=== PATIENT | male | born 1945 | race African-American/Black ===

== ENCOUNTER 2017-02-22 05:54 | Emergency (ER) | payer OTHER ==
[~2017-02-22 05:54] MED LIST: ASPI81TA82 PO; CARD120C4 PO; DUONI NEB; HYDR-3129 PO; INSU1INJ14 SQ; LIPI10TA PO; OMEP20TA PO; PRED20 PO
[2017-02-22 05:55] VITALS: BP 192/88; PULSE 60; RESP 18; TEMP 98; O2SAT 96
[2017-02-22] MEDS ORDERED: ASPI-110 PO (06:19)
[2017-02-22] MEDS ORDERED: CHRO200T4 PO (06:19)
[2017-02-22] MEDS ORDERED: OMEP20TA PO (06:19)
[2017-02-22] MEDS ORDERED: ZETI10TA5 PO (06:19)
[2017-02-22] MEDS ORDERED: ATOR1TAB18 PO (06:19)
[2017-02-22] MEDS ORDERED: DILT120T PO (06:19)
--- NOTE | 2017-02-22 06:40 | PD ---
HPI Chief Complaint: Pain: Acute or Chronic Time Seen by Provider: 06:30 Travel History International Travel<30 days: No Contact w/Intl Traveler<30days: No Traveled to known affect area: No History of Present Illness HPI This is a 71-year-old male who presents to the emergency department with left- sided chest pain that woke him up from sleep at 4 AM, constant, moderate severity, nonradiating. He denies any associated shortness of breath, nausea or diaphoresis. He says the pain goes into his left chest. He says he had a stress test with Dr. Guevara which which he thinks was over a year ago. He says that he had a small heart attack in the past but never received a stent. He does have a history of hypertension, hyperlipidemia and diabetes. PFSH Past Medical History Hx Anticoagulant Therapy: Yes (81MG) Asthma: No Autoimmune Disease: No Blood Disorders: No Heart Rhythm Problems: No Cancer: No Cardiovascular Problems: Yes High Cholesterol: Yes Chemotherapy: No Chest Pain: Yes Congestive Heart Failure: No COPD: Yes Cerebrovascular Accident: No Diabetes: Yes Patient Takes Glucophage: No Diminished Hearing: No Endocrine: Yes Gastrointestinal Disorders: Yes GERD: Yes Genitourinary: No Headaches: Yes (OCCASIONAL) Hiatal Hernia: No Hypertension: Yes Musculoskeletal: No Neurologic: Yes Psychiatric: No Reproductive: No Immunizations Current: Yes Migraines: No Sleep Apnea: No Thyroid Disease: Yes (HYPO) Tetanus Vaccination: < 5 Years Past Surgical History Appendectomy: Yes Cardiac Surgery: No Ear Surgery: No Endocrine Surgery: No Eye Surgery: No Oral Surgery: No Thoracic Surgery: No Other Surgery: Yes (L KNEE) Social History Alcohol Use: Yes (RARE) Tobacco Use: No (quit 2012 after 40 years of pack a day) Substance Use: No Allergies-Medications (Allergen,Severity, Reaction): Coded Allergies: Januvia (Verified Allergy, Severe, Shortness of Breath, 02/22/17) Meloxicam (Verified Allergy, Severe, Wheezing, 02/22/17) Pravastatin (Verified Allergy, Severe, Anaphylaxis, 02/22/17) Reported Meds & Prescriptions Reported Meds & Active Scripts Active Reported Chromium Picolinate 200 Mcg Tab 1 Tab PO DAILY Aspirin 81 (Aspirin) 81 Mg Tabdr 81 Mg PO DAILY Omeprazole 20 Mg Tab 20 Mg PO DAILY Zetia (Ezetimibe) 10 Mg Tab 10 Mg PO DAILY Atorvastatin (Atorvastatin Calcium) 80 Mg Tab 80 Mg PO HS Diltiazem (Diltiazem HCl) 120 Mg Tab 120 Mg PO DAILY Review of Systems Except as stated in HPI: all other systems reviewed are Neg Physical Exam Narrative GENERAL:Well appearing, no acute distress SKIN: Focused skin assessment warm and dry. HEAD: Atraumatic. Normocephalic. EYES: Pupils equal and round. No injection or drainage. ENT: Moist mucous membranes NECK: Trachea midline. CARDIOVASCULAR: Regular rate and rhythm. No murmur appreciated. RESPIRATORY: Clear to auscultation. Breath sounds equal bilaterally. GASTROINTESTINAL: Abdomen soft, non-tender, nondistended. MUSCULOSKELETAL: No obvious deformities. NEUROLOGICAL: Awake and alert. No obvious cranial nerve deficits. Moving all extremities. PSYCHIATRIC: Appropriate mood and affect; insight and judgment normal. Data Data Last Documented VS Vital Signs Date Time Temp Pulse Resp B/P Pulse Ox O2 Delivery O2 Flow Rate FiO2 02/22/17 05:55 98.0 60 18 192/88 96 Room Air MDM Medical Decision Making Medical Screen Exam Complete: Yes Emergency Medical Condition: Yes Interpretation(s) EKG: Normal sinus rhythm with no ST changes Differential Diagnosis Acute coronary syndrome, musculoskeletal pain, pericarditis, pneumonia Narrative Course This is a 71-year-old male who presents to the emergency department with left- sided chest pain that started this morning and woke him up from sleep. He has a history of hypertension, diabetes and hyperlipidemia. EKG is reassuring. Labs will be obtained. I think the patient is appropriate for observation of the chest pain center for serial cardiac enzymes and risk stratification if his initial troponin is reassuring. Mallory Kilpatrick MD Feb 22, 2017 06:40
[2017-02-22 06:43] VITALS: RESP 16; O2SAT 98
[2017-02-22] MEDS ORDERED: SODIUM CHLORIDE 0.9% FLUSH 10 ML FLUSH IVF PRN (06:45)
[2017-02-22] MEDS: ASPIRIN 81 MG CHEW TAB PO ONE (06:47)
[2017-02-22 06:59] LABS: AUTOMATED NEUTROPHIL # 2.6 TH/MM3 (1.8-7.7); BASOPHIL % 0.6 % (0.0-2.0); EOSINOPHIL # 0.1 TH/MM3 (0-0.4); EOSINOPHIL % 1.7 % (0.0-4.0); HEMATOCRIT 38.2 % (39.0-51.0); HEMO FLAGS DIFF FINAL; LYMPH % 28.4 % (9.0-44.0); LYMPHOCYTE # 1.3 TH/MM3 (1.0-4.8); MEAN CELL VOLUME 84.6 FL (80.0-100.0); MEAN CORPUSCULAR HEMOGLOBIN 28.3 PG (27.0-34.0); MEAN CORPUSCULAR HGB CONC 33.4 % (32.0-36.0); MONO % 14.1 % (0.0-8.0); NEUT % 55.2 % (16.0-70.0); PLATELET COUNT 182 TH/MM3 (150-450); RED BLOOD COUNT 4.52 MIL/MM3 (4.50-5.90); RED CELL DISTRIBUTION WIDTH 12.8 % (11.6-17.2); WHITE BLOOD COUNT 4.7 TH/MM3 (4.0-11.0)
[2017-02-22 07:11] LABS: APTT (PATIENT) 30.7 SEC (24.3-30.1); INTERNATIONAL NORMALIZED RATIO 1.1 RATIO; PROTHROMBIN TIME - PATIENT 12.7 SEC (9.8-11.6)
[2017-02-22 07:16] LABS: ANION GAP 7 MEQ/L (5-15); AST (GOT) 19 U/L (15-37); BICARBONATE 26.6 MEQ/L (21.0-32.0); BLOOD UREA NITROGEN 18 MG/DL (7-18); CHLORIDE 103 MEQ/L (98-107); GLOMERULAR FILTRATION RATE 64 ML/MIN (>89); MAGNESIUM 1.8 MG/DL (1.5-2.5); SODIUM (NA) 137 MEQ/L (136-145)
--- NOTE | 2017-02-22 07:16 | RADRPT ---
EXAM DATE/TIME: 02/22/2017 06:43 [facility] COMPARISON: CHEST SINGLE AP, June 10, 2016, 23:29. INDICATIONS : Chest Pain MEDICAL HISTORY : Hypertension. Diabetes mellitus type II. SURGICAL HISTORY : None. ENCOUNTER: Initial ACUITY: 1 day PAIN SCORE: 5/10 LOCATION: Bilateral chest FINDINGS: Stable mild cardiomegaly and cephalization of pulmonary vasculature. Lungs appear clear. Osseous stru ctures are unremarkable. CONCLUSION: Stable exam. Findings suggestive of congestive heart failure. Trinity Nielson MD on February 22, 2017 at 7:14 Board Certified Radiologist. This report was verified electronically.
[2017-02-22 07:20] LABS: ALKALINE PHOSPHATASE 104 U/L (45-117); ALT (GPT) 24 U/L (12-78); TOTAL BILIRUBIN ADULT 0.6 MG/DL (0.2-1.0)
[2017-02-22 07:45] VITALS: BP 188/86; PULSE 53; RESP 16; O2SAT 98
--- NOTE | 2017-02-22 08:33 | PD ---
Data Data Last Documented VS Vital Signs Date Time Temp Pulse Resp B/P Pulse Ox O2 Delivery O2 Flow Rate FiO2 02/22/17 07:45 53 16 188/86 98 Room Air 02/22/17 05:55 98.0 Orders Electrocardiogram (02/22/17 06:36) Complete Blood Count With Diff (02/22/17 06:36) Comprehensive Metabolic Panel (02/22/17 06:36) Magnesium (Mg) (02/22/17 06:36) Prothrombin Time / Inr (Pt) (02/22/17 06:36) Act Partial Throm Time (Ptt) (02/22/17 06:36) Troponin I (02/22/17 06:36) Chest, Single Ap (02/22/17 06:36) Ecg Monitoring (02/22/17 06:36) Bilateral Bp Monitoring (02/22/17 06:36) Iv Access Insert/Monitor (02/22/17 06:36) Oximetry (02/22/17 06:36) Oxygen Administration (02/22/17 06:36) Aspirin Chew (Aspirin Chew) (02/22/17 06:45) Sodium Chloride 0.9% Flush (Ns Flush) (02/22/17 06:45) Labs Laboratory Tests Test 02/22/17 06:40 White Blood Count 4.7 TH/MM3 Red Blood Count 4.52 MIL/MM3 Hemoglobin 12.8 GM/DL Hematocrit 38.2 % Mean Corpuscular Volume 84.6 FL Mean Corpuscular Hemoglobin 28.3 PG Mean Corpuscular Hemoglobin 33.4 % Concent Red Cell Distribution Width 12.8 % Platelet Count 182 TH/MM3 Mean Platelet Volume 9.2 FL Neutrophils (%) (Auto) 55.2 % Lymphocytes (%) (Auto) 28.4 % Monocytes (%) (Auto) 14.1 % Eosinophils (%) (Auto) 1.7 % Basophils (%) (Auto) 0.6 % Neutrophils # (Auto) 2.6 TH/MM3 Lymphocytes # (Auto) 1.3 TH/MM3 Monocytes # (Auto) 0.7 TH/MM3 Eosinophils # (Auto) 0.1 TH/MM3 Basophils # (Auto) 0.0 TH/MM3 CBC Comment DIFF FINAL Differential Comment Prothrombin Time 12.7 SEC Prothromb Time International 1.1 RATIO Ratio Activated Partial 30.7 SEC Thromboplast Time Sodium Level 137 MEQ/L Potassium Level 4.0 MEQ/L Chloride Level 103 MEQ/L Carbon Dioxide Level 26.6 MEQ/L Anion Gap 7 MEQ/L Blood Urea Nitrogen 18 MG/DL Creatinine 1.32 MG/DL Estimat Glomerular Filtration 64 ML/MIN Rate Random Glucose 268 MG/DL Calcium Level 8.5 MG/DL Magnesium Level 1.8 MG/DL Total Bilirubin 0.6 MG/DL Aspartate Amino Transf 19 U/L (AST/SGOT) Alanine Aminotransferase 24 U/L (ALT/SGPT) Alkaline Phosphatase 104 U/L Troponin I LESS THAN 0.02 NG/ML Total Protein 7.2 GM/DL Albumin 3.7 GM/DL [facility] Supervised Visit with JENNIFER: No Narrative Course This patient is checked out to me by Dr. Bernstein at 7 AM. She had recommended a chest pain center observation protocol given his atypical pain and history of CAD. I reviewed the entirety of the workup with the patient at bedside. He is not happy about that plan. He does not want to stay in the hospital. I placed a call to see if his slab off mill tender Dr. Guevara was available to discuss. Unfortunately there is a covering physician and he is not available. Patient had some atypical left upper chest/shoulder/left upper arm pain which could be an anginal variant. His troponin is normal. His chest x-ray is read as some pulmonary edema but he has excellent saturations and no shortness of breath. I reviewed the x-ray and findings look minimal. In any event we discussed at length and I explained the rationale. We reviewed risks and benefits. He is going to sign himself out AGAINST MEDICAL ADVICE. I' ve advised him to return if he worsens or changes his mind. In the event he does not come back he should contact his slab off mill tender's office tomorrow morning for follow-up. Diagnosis Primary Impression: Chest pain, atypical Disposition: AGAINST MEDICAL ADVICE Lee Stevenson MD Feb 22, 2017 08:33
--- NOTE | 2017-02-23 14:15 | EKG ---
Date Performed: 02/22/2017 Time Performed: 06:24:27 PTAGE: 71 years EKG: SINUS BRADYCARDIA NONSPECIFIC T-WAVE ABNORMALITY Since previous tracing, no significant berry nge noted BORDERLINE ECG PREVIOUS TRACING : 11/10/2015 15.21 DOCTOR: Bailee Arevalo Interpretating Date/Time 02/23/2017 14:13:56
== END 2017-02-22 08:47 | disposition left against medical advice (07) ==
LOC: NEPE 05:54
DX: R07.89 Other chest pain (principal); I10 Essential (primary) hypertension; E11.9 Type 2 diabetes mellitus without complications; E78.5 Hyperlipidemia, unspecified; J44.9 Chronic obstructive pulmonary disease, unspecified; K21.9 Gastro-esophageal reflux disease without esophagitis; Z87.891 Personal history of nicotine dependence; Z79.899 Other long term (current) drug therapy; Z79.82 Long term (current) use of aspirin
CPT/HCPCS: 71010; 80053; 83735; 84484; 85025; 85610; 85730; 93005

== ENCOUNTER 2017-04-03 08:44 | Emergency (ER) | payer OTHER ==
[~2017-04-03] VITALS: Ht 172.7 cm; Wt 82.5 kg
[~2017-04-03 08:44] MED LIST changes: +ASPI-110 PO; -ASPI81TA82 PO; +ATOR1TAB18 PO; -CARD120C4 PO; +CHRO200T4 PO; +DILT120T PO; -DUONI NEB; -HYDR-3129 PO; -INSU1INJ14 SQ; -LIPI10TA PO; -PRED20 PO; +ZETI10TA5 PO
[2017-04-03 08:46] VITALS: BP 151/79; PULSE 62; RESP 16; TEMP 98; O2SAT 94
[2017-04-03] MEDS ORDERED: SODIUM CHLORIDE 0.9% FLUSH 10 ML FLUSH IVF PRN (09:15)
[2017-04-03] MEDS ORDERED: RESP: ALBUTEROL 2.5 MG/IPRATROPIUM 0.5 MG NEB (SCH) INH ONE (09:15)
--- NOTE | 2017-04-03 09:29 | PD ---
HPI Chief Complaint: Cold / Flu Symptoms Time Seen by Provider: 09:13 Travel History International Travel<30 days: No Contact w/Intl Traveler<30days: No Traveled to known affect area: No History of Present Illness HPI This is a 72-year-old male with a history of diabetes mellitus, hypertension, hyperlipidemia, who presents today with complaints of cough and cold symptoms 4 days. The patient states he's had a cough with productive yellow phlegm for 4 days. He denies any fevers but states that he had chills last night. He denies any chest pain, chest pressure. He denies any other symptoms at the time of my examination. PFSH Past Medical History Hx Anticoagulant Therapy: Yes (81MG) Asthma: No Autoimmune Disease: No Blood Disorders: No Heart Rhythm Problems: No Cancer: No Cardiovascular Problems: Yes (A-FIB) High Cholesterol: Yes Chemotherapy: No Chest Pain: Yes Congestive Heart Failure: No COPD: Yes Cerebrovascular Accident: No Diabetes: Yes Patient Takes Glucophage: No Diminished Hearing: No Endocrine: Yes Gastrointestinal Disorders: Yes GERD: Yes Genitourinary: No Headaches: Yes (OCCASIONAL) Hiatal Hernia: No Hypertension: Yes Musculoskeletal: No Neurologic: Yes Psychiatric: No Reproductive: No Immunizations Current: Yes Migraines: No Sleep Apnea: No Thyroid Disease: Yes (HYPO) Influenza Vaccination: No Past Surgical History Appendectomy: Yes Cardiac Surgery: No Ear Surgery: No Endocrine Surgery: No Eye Surgery: No Oral Surgery: No Thoracic Surgery: No Other Surgery: Yes (L KNEE) Social History Alcohol Use: No Tobacco Use: No Substance Use: No Allergies-Medications (Allergen,Severity, Reaction): Coded Allergies: Januvia (Verified Allergy, Severe, Shortness of Breath, 04/03/17) Meloxicam (Verified Allergy, Severe, Wheezing, 04/03/17) Pravastatin (Verified Allergy, Severe, Anaphylaxis, 04/03/17) Uncoded Allergies: INVAKANO (Allergy, Mild, Itching, 04/03/17) Reported Meds & Prescriptions Reported Meds & Active Scripts Active Guaifenesin-Codeine Liq 100-10 Mg/5 Ml Soln 10 Ml PO Q6H PRN Zithromax Z-Jeremías (Azithromycin) 250 Mg Dspk 250 Mg PO DIRECTED 500 MG (2 tabs) day 1, then 1 tab days 2-5. Reported Chromium Picolinate 200 Mcg Tab 1 Tab PO DAILY Aspirin 81 (Aspirin) 81 Mg Tabdr 81 Mg PO DAILY Omeprazole 20 Mg Tab 20 Mg PO DAILY Zetia (Ezetimibe) 10 Mg Tab 10 Mg PO DAILY Atorvastatin (Atorvastatin Calcium) 80 Mg Tab 80 Mg PO HS Diltiazem (Diltiazem HCl) 120 Mg Tab 120 Mg PO DAILY Review of Systems Except as stated in HPI: all other systems reviewed are Neg General / Constitutional: Positive: Chills, No: Fever HENT: No: Headaches, Lightheadedness Cardiovascular: No: Chest Pain or Discomfort, Palpitations Respiratory: Positive: Cough, Wheezing, No: Shortness of Breath Gastrointestinal: No: Nausea, Vomiting, Abdominal Pain Musculoskeletal: No: Weakness, Pain Neurologic: No: Weakness, Dizziness, Headache Physical Exam Narrative GENERAL: Well-nourished, well-developed patient, in no acute distress. SKIN: Focused skin assessment warm/dry. HEAD: Normocephalic/atraumatic. EYES: No scleral icterus. No injection or drainage. NECK: Supple, trachea midline. CARDIOVASCULAR: Regular rate and rhythm without murmurs, gallops, or rubs. RESPIRATORY: Mild wheezes heard in the mid lung sounds. No Rales appreciated. GASTROINTESTINAL: Abdomen soft, non-tender, nondistended. MUSCULOSKELETAL: No cyanosis, or edema. NEUROLOGICAL: Awake and alert. Cranial nerves II through XII intact. Motor grossly within normal limits. Five out of 5 muscle strength in all muscle groups. Normal speech. Data Data Last Documented VS Vital Signs Date Time Temp Pulse Resp B/P Pulse Ox O2 Delivery O2 Flow Rate FiO2 04/03/17 10:02 56 165/81 96 Aerosol Mask 7 04/03/17 09:40 16 04/03/17 08:46 98.0 Orders Complete Blood Count With Diff (04/03/17 09:13) Basic Metabolic Panel (Bmp) (04/03/17 09:13) Iv Access Insert/Monitor (04/03/17 09:13) Ecg Monitoring (04/03/17 09:13) Oximetry (04/03/17 09:13) Oxygen Administration (04/03/17 09:13) Chest, Pa & Lat (04/03/17 09:13) Sodium Chloride 0.9% Flush (Ns Flush) (04/03/17 09:15) Albuterol-Ipratropium Neb (Duoneb Neb) (04/03/17 09:15) Albuterol Neb (Albuterol Neb) (04/03/17 09:15) Labs Laboratory Tests Test 04/03/17 09:30 White Blood Count 5.6 TH/MM3 Red Blood Count 4.49 MIL/MM3 Hemoglobin 12.6 GM/DL Hematocrit 37.7 % Mean Corpuscular Volume 83.9 FL Mean Corpuscular Hemoglobin 28.1 PG Mean Corpuscular Hemoglobin 33.5 % Concent Red Cell Distribution Width 13.1 % Platelet Count 209 TH/MM3 Mean Platelet Volume 8.8 FL Neutrophils (%) (Auto) 59.3 % Lymphocytes (%) (Auto) 25.2 % Monocytes (%) (Auto) 13.1 % Eosinophils (%) (Auto) 2.0 % Basophils (%) (Auto) 0.4 % Neutrophils # (Auto) 3.3 TH/MM3 Lymphocytes # (Auto) 1.4 TH/MM3 Monocytes # (Auto) 0.7 TH/MM3 Eosinophils # (Auto) 0.1 TH/MM3 Basophils # (Auto) 0.0 TH/MM3 CBC Comment DIFF FINAL Differential Comment Sodium Level 138 MEQ/L Potassium Level 3.9 MEQ/L Chloride Level 101 MEQ/L Carbon Dioxide Level 28.9 MEQ/L Anion Gap 8 MEQ/L Blood Urea Nitrogen 14 MG/DL Creatinine 1.07 MG/DL Estimat Glomerular Filtration 82 ML/MIN Rate Random Glucose 212 MG/DL Calcium Level 8.9 MG/DL MDM Medical Decision Making Medical Screen Exam Complete: Yes Emergency Medical Condition: Yes Interpretation(s) Last 24 hours Impressions Chest X-Ray 04/03/17912 Signed Impressions: Service Date/Time: Monday, April 03, 2017 09:33 - CONCLUSION: No acute disease. Dakotah Ramos MD FACR Vital Signs Date Time Temp Pulse Resp B/P Pulse Ox O2 Delivery O2 Flow Rate FiO2 04/03/17 10:02 56 165/81 96 Aerosol Mask 7 04/03/17 09:57 99 Room Air 04/03/17 09:40 58 16 191/88 96 Room Air 04/03/17 08:46 98.0 62 16 151/79 94 Differential Diagnosis Bronchitis versus pneumonia versus COPD Narrative Course 72 year-old gentleman with history of COPD/bronchitis, diabetes mother's, who presents today with complaints of cough and congestion. The patient denies any fevers, chills. Patient's chest x-ray shows no evidence of acute infiltrate. He'll be treated with azithromycin Z-Jeremías and cough syrup with codeine. I am not starting him on any steroids given his diabetes mellitus. His blood sugar was elevated at 212. Diagnosis Primary Impression: Bronchitis Additional Impression: Diabetes mellitus Additional Instructions: Return if feeling worse. Follow up with her primary care physician within one to 2 weeks. Med/Other Pt SpecificInfo: Prescription(s) given Scripts Guaifenesin-Codeine Liq 100-10 Mg/5 Ml Soln10 Ml PO Q6H PRN (COUGH) #1 BOTTLE Ref 0 Prov:Valentin Irvin MD 04/03/17 Azithromycin (Zithromax Z-Jeremías)250 Mg [id number] Mg PO DIRECTED #1 DSPK Ref 0 500 MG (2 tabs) day 1, then 1 tab days 2-5. Prov:Valentin Irvin MD 04/03/17 Disposition: 01 DISCHARGE HOME Condition: Stable Valentin Irvin MD April 03, 2017 09:29
[2017-04-03 09:40] VITALS: BP 191/88; PULSE 58; RESP 16; O2SAT 96
[2017-04-03] MEDS: RESP: ALBUTEROL 2.5 MG/3 ML NEB (SCH) INH (09:48)
[2017-04-03 10:02] VITALS: BP 165/81; PULSE 56; O2SAT 96
[2017-04-03 10:09] LABS: AUTOMATED NEUTROPHIL # 3.3 TH/MM3 (1.8-7.7); BASOPHIL % 0.4 % (0.0-2.0); EOSINOPHIL # 0.1 TH/MM3 (0-0.4); HEMATOCRIT 37.7 % (39.0-51.0); HEMO FLAGS DIFF FINAL; LYMPH % 25.2 % (9.0-44.0); LYMPHOCYTE # 1.4 TH/MM3 (1.0-4.8); MEAN CELL VOLUME 83.9 FL (80.0-100.0); MEAN CORPUSCULAR HEMOGLOBIN 28.1 PG (27.0-34.0); MEAN CORPUSCULAR HGB CONC 33.5 % (32.0-36.0); MONO % 13.1 % (0.0-8.0); NEUT % 59.3 % (16.0-70.0); PLATELET COUNT 209 TH/MM3 (150-450); RED BLOOD COUNT 4.49 MIL/MM3 (4.50-5.90); RED CELL DISTRIBUTION WIDTH 13.1 % (11.6-17.2); WHITE BLOOD COUNT 5.6 TH/MM3 (4.0-11.0)
--- NOTE | 2017-04-03 10:10 | RADRPT ---
EXAM DATE/TIME: 04/03/2017 09:33 [facility] COMPARISON: CHEST PA & LAT, January 12, 2015, 2:08. INDICATIONS : Patient has had productive cough and cold like symptoms for four days. Previous smoker. MEDICAL HISTORY : Hypertension. Diabetes mellitus type II. SURGICAL HISTORY : None. ENCOUNTER: Initial ACUITY: 4 - 6 days PAIN SCORE: 8/10 LOCATION: Bilateral Lower back. FINDINGS: PA and lateral views of the chest demonstrate the lungs to be symmetrically aerated without evidence of mass, infiltrate or effusion. The cardiomediastinal contours are unremarkable. Osseous structure s are intact. CONCLUSION: No acute disease. Dakotah Ramos MD FACR on April 03, 2017 at 10:07 Board Certified Radiologist. This report was verified electronically.
[2017-04-03 10:39] LABS: BICARBONATE 28.9 MEQ/L (21.0-32.0); POTASSIUM 3.9 MEQ/L (3.5-5.1)
[2017-04-03] MEDS ORDERED: GUAI100S5 PO (11:15)
[2017-04-03] MEDS ORDERED: ZITHTAB PO (11:15)
[2017-04-03 11:36] VITALS: BP 158/72
== END 2017-04-03 11:42 | disposition home or self-care (01) ==
LOC: NEPC 08:44
DX: J44.9 Chronic obstructive pulmonary disease, unspecified (principal); E11.9 Type 2 diabetes mellitus without complications; Z79.84 Long term (current) use of oral hypoglycemic drugs
CPT/HCPCS: 71020; 80048; 85025; 94640; 94664; 99283; J7613

== ENCOUNTER 2017-04-15 20:58 | Emergency (ER) | payer OTHER ==
[~2017-04-15] VITALS: Ht 172.7 cm; Wt 85.0 kg
[~2017-04-15 20:58] MED LIST changes: +GUAI100S5 PO; +ZITHTAB PO
[2017-04-15 21:01] VITALS: BP 167/78; PULSE 61; RESP 16; TEMP 98.6; O2SAT 96
--- NOTE | 2017-04-15 21:17 | PD ---
Physical Exam Time Seen by Provider: 21:12 Narrative 72yo M c/o high blood sugars. Home reading 510. ER reading 401. Gave self 12u of Tresiba. Was told by PCP to come to ER if blood sugars continued to elevate. Patient seen in triage. VS reviewed. Awaiting bed placement. Data Data Last Documented VS Vital Signs Date Time Temp Pulse Resp B/P Pulse Ox O2 Delivery O2 Flow Rate FiO2 04/15/17 21:01 98.6 61 16 167/78 96 Room Air MDM Supervised Visit with JENNIFER: Jaylene Verduzco April 15, 2017 21:17
[2017-04-15 21:25] VITALS: RESP 18; O2SAT 98
[2017-04-15] MEDS ORDERED: SODIUM CHLORIDE 0.9% FLUSH 10 ML FLUSH IVF PRN (23:00)
--- NOTE | 2017-04-15 23:19 | RADRPT ---
EXAM DATE/TIME: 04/15/2017 23:10 [facility] COMPARISON: CHEST SINGLE AP, June 10, 2016, 23:29. CHEST PA & LAT, April 03, 2017, 9:33. INDICATIONS : Cough for one week. MEDICAL HISTORY : Diabetes mellitus type II. Hypertension SURGICAL HISTORY : None. ENCOUNTER: Initial ACUITY: 1 week PAIN SCORE: 0/10 LOCATION: Bilateral chest FINDINGS: A single view of the chest demonstrates the lungs to be symmetrically aerated without evidence of mas s, infiltrate or effusion. The cardiomediastinal contours are unremarkable. Osseous structures are intact. CONCLUSION: No acute disease. Kiet Michel MD on April 15, 2017 at 23:16 Board Certified Radiologist. This report was verified electronically.
--- NOTE | 2017-04-15 23:41 | PD ---
Physical Exam Date Seen by Provider: April 15, 2017 Time Seen by Provider: 23:38 Narrative GENERAL: Well-developed well-nourished male in acute distress no respiratory distress SKIN: Warm and dry. HEAD: Normocephalic. EYES: No scleral icterus. No injection or drainage. NECK: Supple, trachea midline. No JVD or lymphadenopathy. CARDIOVASCULAR: Decreased Regular rate and rhythm without murmurs, gallops, or rubs. RESPIRATORY: Breath sounds equal bilaterally. No accessory muscle use. GASTROINTESTINAL: Abdomen soft, non-tender, nondistended. MUSCULOSKELETAL: No cyanosis, or edema. BACK: Nontender without obvious deformity. No CVA tenderness. Data Data Last Documented VS Vital Signs Date Time Temp Pulse Resp B/P Pulse Ox O2 Delivery O2 Flow Rate FiO2 04/16/17 00:30 46 16 148/68 99 Room Air 04/15/17 21:01 98.6 Orders Electrocardiogram (04/15/17 22:51) Complete Blood Count With Diff (04/15/17 22:51) Comprehensive Metabolic Panel (04/15/17 22:51) Beta Hydroxybutyrate (Acetone) (04/15/17 22:51) Urinalysis - C+S If Indicated (04/15/17 22:51) Chest, Single Ap (04/15/17 22:51) Blood Glucose (04/15/17 22:51) Ecg Monitoring (04/15/17 22:51) Iv Access Insert/Monitor (04/15/17 22:51) Oximetry (04/15/17 22:51) NPO (04/15/17 22:51) Sodium Chloride 0.9% Flush (Ns Flush) (04/15/17 23:00) Troponin I (04/15/17 22:51) Blood Glucose (04/16/17 00:22) Labs Laboratory Tests Test 04/15/17 04/15/17 22:50 23:30 White Blood Count 8.1 TH/MM3 Red Blood Count 4.73 MIL/MM3 Hemoglobin 13.2 GM/DL Hematocrit 40.4 % Mean Corpuscular Volume 85.5 FL Mean Corpuscular Hemoglobin 27.9 PG Mean Corpuscular Hemoglobin 32.6 % Concent Red Cell Distribution Width 13.4 % Platelet Count 237 TH/MM3 Mean Platelet Volume 9.1 FL Neutrophils (%) (Auto) 67.0 % Lymphocytes (%) (Auto) 22.0 % Monocytes (%) (Auto) 10.0 % Eosinophils (%) (Auto) 0.3 % Basophils (%) (Auto) 0.7 % Neutrophils # (Auto) 5.4 TH/MM3 Lymphocytes # (Auto) 1.8 TH/MM3 Monocytes # (Auto) 0.8 TH/MM3 Eosinophils # (Auto) 0.0 TH/MM3 Basophils # (Auto) 0.1 TH/MM3 CBC Comment DIFF FINAL Differential Comment Sodium Level 134 MEQ/L Potassium Level 4.2 MEQ/L Chloride Level 99 MEQ/L Carbon Dioxide Level 27.3 MEQ/L Anion Gap 8 MEQ/L Blood Urea Nitrogen 24 MG/DL Creatinine 1.47 MG/DL Estimat Glomerular Filtration 57 ML/MIN Rate Random Glucose 374 MG/DL Calcium Level 8.4 MG/DL Total Bilirubin 0.6 MG/DL Aspartate Amino Transf 21 U/L (AST/SGOT) Alanine Aminotransferase 34 U/L (ALT/SGPT) Alkaline Phosphatase 109 U/L Troponin I LESS THAN 0.02 NG/ML Total Protein 7.7 GM/DL Albumin 3.9 GM/DL B-Hydroxybutyrate 0.12 MMOL/L Urine Color LIGHT-YELLOW Urine Turbidity CLEAR Urine pH 5.5 Urine Specific Butler 1.022 Urine Protein TRACE mg/dL Urine Glucose (UA) 1000 mg/dL Urine Ketones NEG mg/dL Urine Occult Blood TRACE Urine Nitrite NEG Urine Bilirubin NEG Urine Urobilinogen LESS THAN 2.0 MG/DL Urine Leukocyte Esterase NEG Urine RBC 2 /hpf Urine WBC LESS THAN 1 /hpf Urine Squamous Epithelial <1 /hpf Cells Urine Mucus FEW /lpf Microscopic Urinalysis Comment CULT NOT INDICATED [facility] Medical Record Reviewed: Yes Supervised Visit with JENNIFER: Yes Interpretation(s) EKG sinus bradycardia rate [address] elevation or injury pattern change noted CBC & BMP Diagram 04/15/17 22:50 Troponin I: Less than 0.02, not elevated Urinalysis glucosuria otherwise grossly normal range BHB: 0.12 not elevated Differential Diagnosis Steroid-induced hyperglycemia, uncontrolled diabetes, electronic disturbance, bronchitis, pneumonia Narrative Course 72-year-old male presents to the emergency department for complaint of increasing blood sugar after receiving an injection of steroid in his physician' s office yesterday. Patient recently completed a course of azithromycin on Thursday for an upper respiratory infection. Patient had routine follow-up visit on Thursday and was identified to have ongoing wheezing so received a steroid injection. Patient was encouraged by his primary care provider to watch his blood sugars closely as he is a diabetic and to come to the emergency room if his blood sugars remained elevated. This evening his blood sugar was over 500 so decided to come to the emergency room for evaluation. Patient denies any other concerns or complaints. There is been no visual disturbance or altered mentation no diaphoresis no lethargy also no chest pain no new shortness of breath wheezing has resolved mild cough nonproductive no orthopnea no PND no abdominal pain no flank pain no increased urination no dysuria and no skin rash or joint pain or swelling. Patient's pain is 0/10 in intensity. Bedside glucose was 370. 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 @ 00:30 Glucose 295 after taking Tarceva at home will add no additional insulin patient stable for outpatient management and follow-up with his specialist; hyperglycemia most likely reflective of steroid therapy. Diagnosis Primary Impression: Hyperglycemia Referrals: Primary Care Physician call for appointment Patient Instructions: General Instructions Additional Instruction: Increase fluid hydration Continue current medications as presently prescribed Follow-up with your primary care physician call office name to schedule follow- up appointment and for adjustment of medications Return to the emergency department for any concerns or change in condition Med/Other Pt SpecificInfo: No Change to Meds Disposition: 01 DISCHARGE HOME Condition: Stable Brenda Fisher MD April 15, 2017 23:41
[2017-04-15 23:44] LABS: BLOOD, URINE TRACE (NEG); COMMENT (UR) CULT NOT INDICATED; CULTURE IF INDICATED CULT NOT INDICATED; GLUCOSE,URINE 1000 mg/dL (NEG); KETONE, URINE NEG (NEG); MUCUS URINE FEW /lpf (OCC); NITRITE,URINE NEG (NEG); PH, URINE 5.5 (5.0-8.5); SQUAMOUS EPITHELIAL CELL URINE <1 /hpf (0-5); URINE COLOR LIGHT-YELLOW (YELLW/STRAW)
[2017-04-15 23:52] LABS: AUTOMATED NEUTROPHIL # 5.4 TH/MM3 (1.8-7.7); BASOPHIL # 0.1 TH/MM3 (0-0.2); BASOPHIL % 0.7 % (0.0-2.0); EOSINOPHIL % 0.3 % (0.0-4.0); HEMATOCRIT 40.4 % (39.0-51.0); HEMO FLAGS DIFF FINAL; LYMPHOCYTE # 1.8 TH/MM3 (1.0-4.8); MEAN CELL VOLUME 85.5 FL (80.0-100.0); MEAN CORPUSCULAR HEMOGLOBIN 27.9 PG (27.0-34.0); MEAN CORPUSCULAR HGB CONC 32.6 % (32.0-36.0); PLATELET COUNT 237 TH/MM3 (150-450); RED BLOOD COUNT 4.73 MIL/MM3 (4.50-5.90); RED CELL DISTRIBUTION WIDTH 13.4 % (11.6-17.2); WHITE BLOOD COUNT 8.1 TH/MM3 (4.0-11.0)
[2017-04-15 23:56] LABS: ALT (GPT) 34 U/L (12-78); ANION GAP 8 MEQ/L (5-15); AST (GOT) 21 U/L (15-37); BICARBONATE 27.3 MEQ/L (21.0-32.0); BLOOD UREA NITROGEN 24 MG/DL (7-18); CHLORIDE 99 MEQ/L (98-107); GLOMERULAR FILTRATION RATE 57 ML/MIN (>89); POTASSIUM 4.2 MEQ/L (3.5-5.1); SODIUM (NA) 134 MEQ/L (136-145)
[2017-04-16] LABS: ALKALINE PHOSPHATASE 109 U/L (45-117); BETA-HYDROXYBUTYRATE 0.12 MMOL/L (0.00-0.39); TOTAL BILIRUBIN ADULT 0.6 MG/DL (0.2-1.0)
[2017-04-16 00:30] VITALS: BP 148/68; PULSE 46; RESP 16; O2SAT 99
--- NOTE | 2017-04-16 11:29 | EKG ---
Date Performed: 04/15/2017 Time Performed: 23:44:56 PTAGE: 72 years EKG: SINUS BRADYCARDIA NONSPECIFIC T-WAVE ABNORMALITY BORDERLINE ECG PREVIOUS TRACING : 02/22/2017 06.24 Compared to prior tracing no significant change DOCTOR: Ed David Interpretating Date/Time 04/16/2017 11:28:29
== END 2017-04-16 01:15 | disposition home or self-care (01) ==
LOC: NEPC 20:58
DX: E11.65 Type 2 diabetes mellitus with hyperglycemia (principal); R00.1 Bradycardia, unspecified
CPT/HCPCS: 71010; 80053; 81001; 82010; 84484; 85025; 93005; 99285

== ENCOUNTER 2017-04-30 19:27 | Inpatient (IN) | payer OTHER, MEDICARE ==
[~2017-04-30] VITALS: Ht 172.7 cm; Wt 85.4 kg
[~2017-04-30 19:27] MED LIST changes: -CHRO200T4 PO; -ZITHTAB PO
[2017-04-30 19:33] VITALS: BP 202/91; PULSE 61; RESP 18; TEMP 97.7; O2SAT 97
[2017-04-30] MEDS ORDERED: HYDR-3583 PO (21:47)
[2017-04-30] MEDS ORDERED: CHRO200C (21:47)
[2017-04-30 21:51] VITALS: BP 143/77; PULSE 64; RESP 18; O2SAT 98
[2017-04-30] MEDS ORDERED: SODIUM CHLOR 0.9% 1000 ML INJ 1,000 ML IV SCH (21:55)
[2017-04-30 21:57] VITALS: RESP 18; O2SAT 97
[2017-04-30] MEDS ORDERED: ONDANSETRON HCL 4 MG/2 ML VIAL IVP ONE (22:00)
[2017-04-30] MEDS ORDERED: SODIUM CHLORIDE 0.9% FLUSH 10 ML FLUSH IV FLUSH PRN ×2 (22:00→23:30)
[2017-04-30] MEDS ORDERED: MORPHINE SULFATE 8 MG/ML INJ IV PUSH ONE (22:00)
--- NOTE | 2017-04-30 22:13 | PD ---
HPI Chief Complaint: Abdominal Pain Time Seen by Provider: 21:47 Travel History International Travel<30 days: No Contact w/Intl Traveler<30days: No Traveled to known affect area: No History of Present Illness HPI 72 yo M c/o abdominal pain, LUQ and left abdomen, for about 3 hours, associated with nausea and multiple episodes vomiting (5 episodes) and diarrhea. No CP/ SOB. Diaphoresis reported along with weakness generally, which has resolved. Pain started about 1 hour after last PO, chicken, rice and squash. Stool and emesis are non-bloody. PFSH Past Medical History Hx Anticoagulant Therapy: Yes (81MG) Asthma: No Autoimmune Disease: No Blood Disorders: No Heart Rhythm Problems: No Cancer: No Cardiovascular Problems: Yes (AFIB) High Cholesterol: Yes Chemotherapy: No Chest Pain: Yes Congestive Heart Failure: No COPD: Yes Cerebrovascular Accident: No Diabetes: Yes Patient Takes Glucophage: No Diminished Hearing: No Endocrine: Yes Gastrointestinal Disorders: Yes GERD: Yes Genitourinary: No Headaches: Yes (OCCASIONAL) Hiatal Hernia: No Hypertension: Yes Musculoskeletal: No Neurologic: Yes Psychiatric: No Reproductive: No Immunizations Current: Yes Migraines: No Sleep Apnea: No Thyroid Disease: Yes (HYPO) Past Surgical History Appendectomy: Yes Cardiac Surgery: No Ear Surgery: No Endocrine Surgery: No Eye Surgery: No Oral Surgery: No Thoracic Surgery: No Other Surgery: Yes (L KNEE) Social History Alcohol Use: No Tobacco Use: No Substance Use: No Allergies-Medications (Allergen,Severity, Reaction): Coded Allergies: Januvia (Verified Allergy, Severe, Shortness of Breath, 04/30/17) Meloxicam (Verified Allergy, Severe, Wheezing, 04/30/17) Pravastatin (Verified Allergy, Severe, Anaphylaxis, 04/30/17) Uncoded Allergies: INVAKANO (Allergy, Mild, Itching, 04/03/17) Reported Meds & Prescriptions Reported Meds & Active Scripts Active Reported Hydrocodone-Acetaminophen 10-325 mg Tab 1 Tab PO Q4H PRN Chromium Picolinate 200 Mcg Cap Aspirin 81 (Aspirin) 81 Mg Tabdr 81 Mg PO DAILY Omeprazole 20 Mg Tab 20 Mg PO DAILY Zetia (Ezetimibe) 10 Mg Tab 10 Mg PO DAILY Diltiazem (Diltiazem HCl) 120 Mg Tab 120 Mg PO DAILY Review of Systems Except as stated in HPI: all other systems reviewed are Neg Physical Exam Narrative GENERAL: 72 yo M, NAD, WNWD SKIN: Warm and dry. HEAD: Atraumatic. Normocephalic. EYES: Pupils equal and round. No scleral icterus. No injection or drainage. ENT: No nasal bleeding or discharge. Mucous membranes pink and moist. NECK: Trachea midline. No JVD. CARDIOVASCULAR: Regular rate and rhythm. RESPIRATORY: No accessory muscle use. Clear to auscultation. Breath sounds equal bilaterally. GASTROINTESTINAL: Soft. Diffuse tenderness. MUSCULOSKELETAL: Extremities without clubbing, cyanosis, or edema. No obvious deformities. NEUROLOGICAL: Awake and alert. No obvious cranial nerve deficits. Motor grossly within normal limits. Five out of 5 muscle strength in the arms and legs. Normal speech. PSYCHIATRIC: Appropriate mood and affect; insight and judgment normal. Data Data Last Documented VS Vital Signs Date Time Temp Pulse Resp B/P Pulse Ox O2 Delivery O2 Flow Rate FiO2 04/30/17 21:57 18 97 04/30/17 21:51 64 143/77 04/30/17 19:33 97.7 Room Air VS reviewed Orders Complete Blood Count With Diff (04/30/17 21:55) Comprehensive Metabolic Panel (04/30/17 21:55) Lipase (04/30/17 21:55) Ct Abd/Pel W Iv Contrast(Rout) (04/30/17 21:55) Iv Access Insert/Monitor (04/30/17 21:55) Ecg Monitoring (04/30/17 21:55) Oximetry (04/30/17 21:55) Ondansetron Inj (Zofran Inj) (04/30/17 22:00) Sodium Chlor 0.9% 1000 Ml Inj (Ns 1000 M (04/30/17 21:55) Sodium Chloride 0.9% Flush (Ns Flush) (04/30/17 22:00) Morphine Inj (Morphine Inj) (04/30/17 22:00) Iohexol 350 Inj (Omnipaque 350 Inj) (04/30/17 23:10) Mri Mrcp W & W/O Contrast (04/30/17 ) Admit Order (Ed Use Only) (04/30/17 23:27) Labs Laboratory Tests Test 04/30/17 21:58 White Blood Count 8.6 TH/MM3 Red Blood Count 4.93 MIL/MM3 Hemoglobin 13.8 GM/DL Hematocrit 42.0 % Mean Corpuscular Volume 85.2 FL Mean Corpuscular Hemoglobin 28.0 PG Mean Corpuscular Hemoglobin 32.9 % Concent Red Cell Distribution Width 13.4 % Platelet Count 203 TH/MM3 Mean Platelet Volume 8.8 FL Neutrophils (%) (Auto) 92.4 % Lymphocytes (%) (Auto) 5.6 % Monocytes (%) (Auto) 1.7 % Eosinophils (%) (Auto) 0.0 % Basophils (%) (Auto) 0.3 % Neutrophils # (Auto) 8.0 TH/MM3 Lymphocytes # (Auto) 0.5 TH/MM3 Monocytes # (Auto) 0.2 TH/MM3 Eosinophils # (Auto) 0.0 TH/MM3 Basophils # (Auto) 0.0 TH/MM3 CBC Comment DIFF FINAL Differential Comment Sodium Level 135 MEQ/L Potassium Level 4.3 MEQ/L Chloride Level 100 MEQ/L Carbon Dioxide Level 24.5 MEQ/L Anion Gap 11 MEQ/L Blood Urea Nitrogen 20 MG/DL Creatinine 1.17 MG/DL Estimat Glomerular Filtration 74 ML/MIN Rate Random Glucose 202 MG/DL Calcium Level 9.0 MG/DL Total Bilirubin 1.1 MG/DL Aspartate Amino Transf 17 U/L (AST/SGOT) Alanine Aminotransferase 20 U/L (ALT/SGPT) Alkaline Phosphatase 104 U/L Total Protein 8.0 GM/DL Albumin 4.0 GM/DL Lipase 3157 U/L [facility] Medical Decision Making Medical Screen Exam Complete: Yes Emergency Medical Condition: Yes Medical Record Reviewed: Yes Differential Diagnosis Constipation, Gastritis, Acute Cholecystitis, Biliary Colic, Pancreatitis, GOMEZ , Hepatitis, Bowel Obstruction, Cystitis, Mesenteric Ischemia, AAA, Appendicitis , Renal Stone/Hydronephrosis, GERD, perforated viscous Narrative Course CBC & BMP Diagram 04/30/17 21:58 Neutrophil 92.4% LFTs normal Lipase 3157 Last 24 hours Impressions Abdomen/Pelvis CT 04/30/17 1758 Signed Impressions: Service Date/Time: , April 30, 2017 23:03 - CONCLUSION: 1. No evidence of acute abdominal or pelvic process. No masses are identified. 2. Mild prominence of the pancreatic head with dilatation of the pancreatic duct. MRI is recommended for further evaluation if clinically indicated. Floyd Diaz MD Admission for pancreatitis. D/w Dr Ayon. MRCP ordered. Pt denies alcohol use. Diagnosis Primary Impression: Pancreatitis Qualified Code: K85.90 - Acute pancreatitis, unspecified complication status, unspecified pancreatitis type Additional Impression: Nausea vomiting and diarrhea Admitting Information Admitting Physician Requests: Admit Lucian David MD Apr 30, 2017 22:13
[2017-04-30 22:31] LABS: BASOPHIL % 0.3 % (0.0-2.0); HEMO FLAGS DIFF FINAL; LYMPH % 5.6 % (9.0-44.0); LYMPHOCYTE # 0.5 TH/MM3 (1.0-4.8); MEAN CELL VOLUME 85.2 FL (80.0-100.0); MEAN CORPUSCULAR HGB CONC 32.9 % (32.0-36.0); MONO % 1.7 % (0.0-8.0); NEUT % 92.4 % (16.0-70.0); PLATELET COUNT 203 TH/MM3 (150-450); RED BLOOD COUNT 4.93 MIL/MM3 (4.50-5.90); RED CELL DISTRIBUTION WIDTH 13.4 % (11.6-17.2); WHITE BLOOD COUNT 8.6 TH/MM3 (4.0-11.0)
[2017-04-30 22:43] LABS: ANION GAP 11 MEQ/L (5-15); AST (GOT) 17 U/L (15-37); BICARBONATE 24.5 MEQ/L (21.0-32.0); BLOOD UREA NITROGEN 20 MG/DL (7-18); CHLORIDE 100 MEQ/L (98-107); GLOMERULAR FILTRATION RATE 74 ML/MIN (>89); POTASSIUM 4.3 MEQ/L (3.5-5.1); SODIUM (NA) 135 MEQ/L (136-145)
[2017-04-30 22:47] LABS: ALKALINE PHOSPHATASE 104 U/L (45-117); ALT (GPT) 20 U/L (12-78); TOTAL BILIRUBIN ADULT 1.1 MG/DL (0.2-1.0)
[2017-04-30] MEDS ORDERED: IOHEXOL 350 MG/ML 10 ML VIAL (for RAD DIAG) IV ONE (23:10)
--- NOTE | 2017-04-30 23:20 | RADRPT ---
EXAM DATE/TIME: 04/30/2017 23:03 [facility] COMPARISON: CT ABDOMEN & PELVIS W CONTRAST, September 12, 2015, 21:36. INDICATIONS : Abdominal pain with nausea and vomiting. IV CONTRAST: 100 cc Omnipaque 350 (iohexol) IV ORAL CONTRAST: No oral contrast ingested. RADIATION DOSE: 7.04 CTDIvol (mGy) MEDICAL HISTORY : Hypertension. Diabetes mellitus type 2. SURGICAL HISTORY : Appendectomy. ENCOUNTER: Initial ACUITY: 1 day PAIN SCALE: 9/10 LOCATION: abdomen TECHNIQUE: Volumetric scanning of the abdomen and pelvis was performed. Using automated exposure control and ad justment of the mA and/or kV according to patient size, radiation dose was kept as low as reasonably achievable to obtain optimal diagnostic quality images. FINDINGS: Examination of the lung bases demonstrates no abnormality. No pleural fluid is identified. No pulmona ry nodules are present. The liver and spleen are normal in size and no focal defects are identified. Multiple calcified granulomas are present in the spleen. The gallbladder is normal without wall thick ening or pericholecystic fluid. The pancreatic head is heterogeneous without enlargement with mild di latation of the pancreatic duct. Mass is not excluded. MRI is recommended for further evaluation if c linically indicated. The adrenal glands and kidneys appear normal bilaterally. No hydronephrosis or m ass lesions are identified. No abnormally enlarged lymph nodes are identified. Examination of the pelvis demonstrates no evidence of free fluid or pelvic mass. No abnormally enlarg ed inguinal or retroperitoneal lymph nodes are present. The bladder is unremarkable. Examination of t he right lower quadrant demonstrates no abnormality. The appendix is identified and appears normal. T he prostate gland is moderately enlarged impinging on the bladder base. CONCLUSION: 1. No evidence of acute abdominal or pelvic process. No masses are identified. 2. Mild prominence of the pancreatic head with dilatation of the pancreatic duct. MRI is recommended for further evaluation if clinically indicated. Floyd Diaz MD on April 30, 2017 at 23:15 Board Certified Radiologist. This report was verified electronically.
[2017-04-30] MEDS: SODIUM CHLOR 0.9% 1000 ML INJ 1,000 ML IV SCH (23:27)
[2017-04-30] MEDS ORDERED: ONDANSETRON HCL 4 MG/2 ML VIAL IVP PRN (23:30)
[2017-04-30] MEDS ORDERED: NALOXONE HCL 0.4 MG/ML AMP IV PRN (23:30)
[2017-04-30] MEDS ORDERED: MORPHINE SULFATE 4 MG/ML INJ IV PUSH PRN (23:30)
[2017-04-30 23:55] VITALS: PULSE 76
[2017-05-01] VITALS: BP 105/62; PULSE 73; RESP 20; TEMP 97.8; O2SAT 97
--- NOTE | 2017-05-01 01:41 | HHI.HP ---
[facility] Kiet Machuca, DO Admission Diagnosis Pancreatitis, N/V/D Diagnoses: Travel History International Travel<30 Days: No Contact w/Intl Traveler <30 Da: No Traveled to Known Affected Are: No History of Present Illness History from patient, ER provider communication, and review of medical records. Patient reported that he had some turkey wings yesterday and immediately after that, he had diffuse abdominal pain, nausea, and vomited 6 times. He reports he was sweating a bit during that episode as well. However denies fever. Denies diarrhea. Denies any blood in his stool or in his urine. Reports that his vomitus was mostly whitish in color. Patient states that many years ago, he has had GI ulcers. He states he drinks beer about 2 beers a day. He stopped drinking about 7 years ago. He however states that he still has some stomach problems especially if he eats something spicy. Patient denies any prior history of cholecystectomy. denies history of gallstones. Denies any recent change in his medications although he felt like he is not 100 % sure. Review of Systems Except as stated in HPI: all other systems reviewed are Neg Past Family Social History Past Medical History htn dm- on insulin hyperlipdemia copd hx of - 2013 cath showing single vesseldx hx of afib in 2013 hx of heart murmur hx of TIA enlarged prostate Past Surgical History laser sx on left knee Allergies: Coded Allergies: Januvia (Verified Allergy, Severe, Shortness of Breath, 04/30/17) Meloxicam (Verified Allergy, Severe, Wheezing, 04/30/17) Pravastatin (Verified Allergy, Severe, Anaphylaxis, 04/30/17) Uncoded Allergies: INVAKANO (Allergy, Mild, Itching, 04/03/17) Family History mom is diabetic grandmother, brothers- diabetes Social History quit smoking 2012 drinks socially no drugs Physical Exam Vital Signs Vital Signs Date Time Temp Pulse Resp B/P Pulse Ox O2 Delivery O2 Flow Rate FiO2 04/30/17 21:57 18 97 04/30/17 21:51 64 18 143/77 98 04/30/17 21:40 18 04/30/17 19:33 97.7 61 18 202/91 97 Room Air Physical Exam GENERAL: This is a well-nourished, well-developed patient, in no apparent distress. SKIN: No rashes, ecchymoses or lesions. Cool and dry. HEAD: Atraumatic. Normocephalic. No temporal or scalp tenderness. EYES: No scleral icterus. No injection or drainage. ENT: Nose without bleeding, purulent drainage or septal hematoma. Airway patent. NECK: Trachea midline. No JVD CARDIOVASCULAR: Regular rate and rhythm without murmurs, gallops, or rubs. RESPIRATORY: Clear to auscultation. Breath sounds equal bilaterally. No wheezes , rales, or rhonchi. GASTROINTESTINAL: Abdomen soft, tenderness diffusely, nondistended. No guarding. MUSCULOSKELETAL: Extremities without clubbing, cyanosis, or edema.No calf tenderness. NEUROLOGICAL: Awake and alert Motor and sensory grossly within normal limits. Normal speech. Laboratory Laboratory Tests Test 04/30/17 21:58 White Blood Count 8.6 Red Blood Count 4.93 Hemoglobin 13.8 Hematocrit 42.0 Mean Corpuscular Volume 85.2 Mean Corpuscular Hemoglobin 28.0 Mean Corpuscular Hemoglobin 32.9 Concent Red Cell Distribution Width 13.4 Platelet Count 203 Mean Platelet Volume 8.8 Neutrophils (%) (Auto) 92.4 Lymphocytes (%) (Auto) 5.6 Monocytes (%) (Auto) 1.7 Eosinophils (%) (Auto) 0.0 Basophils (%) (Auto) 0.3 Neutrophils # (Auto) 8.0 Lymphocytes # (Auto) 0.5 Monocytes # (Auto) 0.2 Eosinophils # (Auto) 0.0 Basophils # (Auto) 0.0 CBC Comment DIFF FINAL Differential Comment Sodium Level 135 Potassium Level 4.3 Chloride Level 100 Carbon Dioxide Level 24.5 Anion Gap 11 Blood Urea Nitrogen 20 Creatinine 1.17 Estimat Glomerular Filtration 74 Rate Random Glucose 202 Calcium Level 9.0 Total Bilirubin 1.1 Aspartate Amino Transf 17 (AST/SGOT) Alanine Aminotransferase 20 (ALT/SGPT) Alkaline Phosphatase 104 Total Protein 8.0 Albumin 4.0 Lipase 3157 Result Diagram: 04/30/17215704/30/172157 Imaging Last 48 hours Impressions Abdomen/Pelvis CT 04/30/17 4737 Signed Impressions: Service Date/Time: April 23:03 - CONCLUSION: 1. No evidence of acute abdominal or pelvic process. No masses are identified. 2. Mild prominence of the pancreatic head with dilatation of the pancreatic duct. MRI is recommended for further evaluation if clinically indicated. Floyd Diaz MD Assessment and Plan Assessment and Plan Impression: Acute pancreatitis htn dm- on insulin hyperlipdemia copd hx of [place] - 2013 cath showing single vesseldx hx of afib in 2013 hx of heart murmur hx of TIA enlarged prostate Plan: IV fluids. We'll follow [place]'s criteria. Pain control. CT of the abdomen and pelvisreviewed.. Evidence of pancreatic head with dilation of the pancreatic duct. Would obtain MRCP. GI consult. Resume home meds. Hold zetia Hold insulin. We'll monitor fingersticks. DVT prophylaxiswith Lovenox. GI prophylaxis on pantoprazole. Discussed Condition With patient, ER MD, pt's nurse Physician Certification 2 Midnight Certification Type: Admission for Inpatient Services Order for Inpatient Services The services are ordered in accordance with Medicare regulations or non- Medicare payer requirements, as applicable. In the case of services not specified as inpatient-only, they are appropriately provided as inpatient services in accordance with the 2-midnight benchmark. Estimated LOS (days): 2 days is the estimated time the patient will need to remain in the hospital, assuming treatment plan goals are met and no additional complications. Post-Hospital Plan: Home Cathy Ayon MD May 01, 2017 01:41
[2017-05-01] MEDS ORDERED: GLUCAGON 1 MG/ML VIAL OTHER PRN (01:45)
[2017-05-01] MEDS ORDERED: DEXTROSE 50% IN WATER 50 ML VIAL(D50) IV PRN (01:45)
[2017-05-01 04:00] VITALS: BP 127/61; PULSE 55; RESP 16; TEMP 97.9; O2SAT 100
[2017-05-01] MEDS: PANTOPRAZOLE SOD 20 MG DELAYED RELEASE TAB PO SCH (06:49)
[2017-05-01 08:00] VITALS: BP 162/78; PULSE 56; RESP 16; TEMP 97.3; O2SAT 96
[2017-05-01] MEDS ORDERED: MORPHINE SULFATE 4 MG/ML INJ IV PRN (08:00)
[2017-05-01 08:40] LABS: AUTOMATED NEUTROPHIL # 3.1 TH/MM3 (1.8-7.7); BASOPHIL % 0.4 % (0.0-2.0); EOSINOPHIL % 0.8 % (0.0-4.0); HEMATOCRIT 36.7 % (39.0-51.0); HEMO FLAGS DIFF FINAL; LYMPH % 28.3 % (9.0-44.0); LYMPHOCYTE # 1.5 TH/MM3 (1.0-4.8); MEAN CELL VOLUME 84.7 FL (80.0-100.0); MEAN CORPUSCULAR HEMOGLOBIN 28.1 PG (27.0-34.0); MEAN CORPUSCULAR HGB CONC 33.2 % (32.0-36.0); MONO % 10.2 % (0.0-8.0); NEUT % 60.3 % (16.0-70.0); PLATELET COUNT 195 TH/MM3 (150-450); RED BLOOD COUNT 4.34 MIL/MM3 (4.50-5.90); RED CELL DISTRIBUTION WIDTH 13.6 % (11.6-17.2); WHITE BLOOD COUNT 5.1 TH/MM3 (4.0-11.0)
[2017-05-01] MEDS: DILTIAZEM-CD 120 MG CAP ER PO SCH (09:00)
[2017-05-01] MEDS: SODIUM CHLORIDE 0.9% FLUSH 10 ML FLUSH IV FLUSH SCH ×2 (09:00→21:00)
[2017-05-01] MEDS: ENOXAPARIN SODIUM 40 MG/0.4 ML SYRINGE SQ SCH (09:00)
[2017-05-01] MEDS: SODIUM CHLOR 0.9% 1000 ML INJ 1,000 ML IV SCH ×2 (09:03→19:27)
[2017-05-01] MEDS: ASPIRIN EC 81 MG TABEC PO SCH (09:03)
[2017-05-01 09:13] LABS: ALKALINE PHOSPHATASE 87 U/L (45-117); ALT (GPT) 18 U/L (12-78); ANION GAP 6 MEQ/L (5-15); AST (GOT) 13 U/L (15-37); BICARBONATE 27.8 MEQ/L (21.0-32.0); BLOOD UREA NITROGEN 16 MG/DL (7-18); CHLORIDE 102 MEQ/L (98-107); GLOMERULAR FILTRATION RATE 77 ML/MIN (>89); POTASSIUM 3.9 MEQ/L (3.5-5.1); SODIUM (NA) 136 MEQ/L (136-145); TOTAL BILIRUBIN ADULT 1.2 MG/DL (0.2-1.0)
[2017-05-01] MEDS ORDERED: cloNIDine HCL 0.1 MG TAB PO PRN (10:45)
[2017-05-01] MEDS ORDERED: ENALAPRILAT 1.25 MG/ML VIAL IV PRN (10:45)
[2017-05-01 12:00] VITALS: BP 142/67; PULSE 54; RESP 16; TEMP 97.9; O2SAT 95
[2017-05-01] MEDS: INSULIN ASPART SUPPLEMENTAL SCALE SQ SCH ×3 (12:35→21:00)
--- NOTE | 2017-05-01 14:44 | HHI.PR ---
Subjective Remarks Follow up acute pancreatitis. Improving pain scale of 6 out of 10. Agrees to proceed with MRCP if medicated. Seen with family. Discussed with RN Objective Vitals Vital Signs Date Time Temp Pulse Resp B/P Pulse Ox O2 Delivery O2 Flow Rate FiO2 05/01/17 08:00 97.3 56 16 162/78 96 05/01/17 04:00 97.9 55 16 127/61 100 05/01/17 00:00 97.8 73 20 105/62 97 04/30/17 23:55 76 04/30/17 21:57 18 97 04/30/17 21:51 64 18 143/77 98 04/30/17 21:40 18 04/30/17 19:33 97.7 61 18 202/91 97 Room Air I/O 04/30/17 04/30/17 04/30/17 05/01/17 05/01/17 05/01/17 07:00 15:00 23:00 07:00 15:00 23:00 Intake Total 1113 ml Balance 1113 ml Intake Oral 480 ml IV Total 633 ml # Voids 3 # Bowel Movements 0 Result Diagram: 05/01/17 0748 05/01/17 0748 Imaging Last Impressions Abdomen/Pelvis CT 04/30/172154 Signed Impressions: Service Date/Time: April 23:03 - CONCLUSION: 1. No evidence of acute abdominal or pelvic process. No masses are identified. 2. Mild prominence of the pancreatic head with dilatation of the pancreatic duct. MRI is recommended for further evaluation if clinically indicated. Floyd Diaz MD Objective Remarks GENERAL: Well-developed, well-nourished in no distress SKIN: Warm and dry. HEAD: Atraumatic. Normocephalic. EYES: Pupils equal and round. No scleral icterus. No injection or drainage. ENT: No nasal bleeding or discharge. Mucous membranes pink and moist. NECK: Trachea midline. No JVD. CARDIOVASCULAR: Regular rate and rhythm. RESPIRATORY: No accessory muscle use. Clear to auscultation. Breath sounds equal bilaterally. GASTROINTESTINAL: Abdomen soft, tender upper quadrants, nondistended. MUSCULOSKELETAL: Extremities without clubbing, cyanosis, or edema. No obvious deformities. NEUROLOGICAL: Awake and alert. No obvious cranial nerve deficits. Motor grossly within normal limits. Five out of 5 muscle strength in the arms and legs. Normal speech. PSYCHIATRIC: Appropriate mood and affect; insight and judgment normal. Procedures none A/P Problem List: (1) Pancreatitis ICD Code: K85.90 Status: Acute Assessment and Plan Acute pancreatitis. CT shows Mild prominence of the pancreatic head with dilatation of the pancreatic duct. Improving pain with decreasing lipase. Continue clear liquid diet, pain management with IV morphine and follow-up MRCP Chronic medical conditions of htn, dm- on insulin, hyperlipidemia, copd, CAD, afib, TIA and enlarged prostate. Stable continue outpatient medications as appropriate. Monitor fingerstick with sliding scale coverage DVT prophylaxis with SCD and Lovenox Problem Qualifiers (1) Pancreatitis: Qualified Code: K85.90 - Acute pancreatitis, unspecified complication status, unspecified pancreatitis type Reese Mchugh MD May 01, 2017 14:44
[2017-05-01] MEDS ORDERED: LORazepam 2 MG/ML VIAL IV PUSH ONE (14:45)
--- NOTE | 2017-05-01 18:02 | RADRPT ---
EXAM DATE/TIME: 05/01/2017 17:06 [facility] COMPARISON: CT ABDOMEN & PELVIS W CONTRAST, September 12, 2015, 21:36. CT ABDOMEN & PELVIS W/O CONTRAST, May 04, 2016, 1:36. CT ABDOMEN & PELVIS W CONTRAST, April 30, 2017, 23:03. INDICATIONS : Pancreatitis. MEDICAL HISTORY : Hypertension. Diabetes mellitus type 2. Chronic obstructive pulmonary disease. SURGICAL HISTORY : Left knee surgery. ENCOUNTER: Initial ACUITY: 1 day PAIN SCORE: 4/10 LOCATION: Upper abdomen. TECHNIQUE: Multiplanar, multisequence magnetic resonance imaging of the abdomen was performed. High-resolution 3D dataset was utilized to reconstruct maximum-intensity projection (MIP) images. FINDINGS: There is no evidence of intrahepatic or extrahepatic biliary ductal dilatation. The gallbladder is u nremarkable. There is no pancreatic ductal dilatation noted. No solid mass is noted within the panc reas. There is a fluid density ill-defined collection at the junction of the head and body of the lock creas measuring 2.0 x 0.9 cm which appears chronic and may be related to previous bout of pancreatiti s. There are two small cysts within the body of the pancreas measuring 7 mm each, also. No definite peripancreatic inflammatory changes are identified on the MRI. There are scattered cysts within both kidneys which are stable. CONCLUSION: 1. Ill-defined fluid density area within the expected region of the junction of the head and body of the pancreas measuring 2.0 x 0.9 cm which is chronic and likely related to previous bouts of pancreat itis. 2. Two tiny cysts within the body of the pancreas measuring 7 mm each. 3. No evidence of solid mass within the pancreas or pancreatic ductal dilatation. 4. Multiple stable renal cysts. 5. No evidence of biliary ductal dilatation. Chadwick Quintanilla MD on May 01, 2017 at 17:45 Board Certified Radiologist. This report was verified electronically.
--- NOTE | 2017-05-01 18:55 | PD.CONS ---
HPI History of Present Illness This is a 72 year old male with a past history of heavy alcohol use who presented to the ER for evaluation of nausea, vomiting, abdominal pain. He reports that his pain began suddenly yesterday afternoon around 2pm after eating turkey wings and squash. He reports that this is a severe sharp constant pain in his LUQ that radiates to his RUQ with associated nausea and vomiting consisting of food and bilious material. His symptoms were aggravated by po. He reports that he was diaphoretic, but denies any fever or chills. He denies any abnormal weight loss or diarrhea. He denies any melena or hematochezia. Abdomen/Pelvis CT (04/30/17)-----> 1. No evidence of acute abdominal or pelvic process. No masses are identified. 2. Mild prominence of the pancreatic head with dilatation of the pancreatic duct. MRI is recommended for further evaluation if clinically indicated. Lipase was elevated on admission at 3157. He was noted to have mild isolated elevation of his bilirubin and a MRCP(05/01/17)---> ill-defined fluid density area within the expected region of the junction of the head and body of the pancreas measuring 2.0 x 0.9 cm which is chronic and likely related to previous bouts of pancreatitis, two tiny cysts in within the body of the pancreas measuring 7 mm each, no evidence of solid mass within th epancreas or pancreatic ductal dilatation, multiple stable renal cysts, no evidence of biliary ductal dilatation. This GI has been consulted for acute pancreatitis. He denies any prior history of pancreatitis or known gallbladder issues. He does have a long history of heavy alcohol use, but states that he quit completely 3-4 years ago. He had peptic ulcer disease about 10 years ago and was evaluated by EGD at that time. He reports that this resolved after about 4 weeks. He denies any new medications. He does have a history of high triglycerides. He also believes that his mother had pancreatitis in the past. She is from an unknown cancer. (Vibha Lau) PFSH Past Medical History HTN DM Hyperlipdemia COPD CAD/IL Hx Atrial fibrillation Hx heart murmur Hx of TIA Enlarged prostate PUD Past Surgical History Laser surgery on left knee EGD (Vibha Lau) Coded Allergies: Januvia (Verified Allergy, Severe, Shortness of Breath, 6/15/17) Meloxicam (Verified Allergy, Severe, Wheezing, 04/30/17) Pravastatin (Verified Allergy, Severe, Anaphylaxis, 04/30/17) Uncoded Allergies: INVAKANO (Allergy, Mild, Itching, 04/03/17) Medications Allergies Coded Allergies Type Severity Reaction Last Updated Verified Januvia Allergy Severe Shortness of Breath 04/30/17 Yes Meloxicam Allergy Severe Wheezing 04/30/17 Yes Pravastatin Allergy Severe Anaphylaxis 04/30/17 Yes Uncoded Allergies Type Severity Reaction Last Updated Verified INVAKANO Allergy Mild Itching 04/03/17 Active Scripts Medications Dose Route/Sig Days Date Category Hydrocodone-Acetaminophen 10-325 mg Tab 1 Tab PO Q4H PRN 04/30/17 Reported Chromium Picolinate 200 Mcg Cap 04/30/17 Reported Aspirin 81 (Aspirin) 81 Mg Tabdr 81 Mg PO DAILY 02/22/17 Reported Omeprazole 20 Mg Tab 20 Mg PO DAILY 02/22/17 Reported Zetia (Ezetimibe) 10 Mg Tab 10 Mg PO DAILY 02/22/17 Reported Diltiazem (Diltiazem HCl) 120 Mg Tab 120 Mg PO DAILY 02/22/17 Reported Family History Mom had DM, Pancreatitis, from unknown cancer grandmother, brothers- diabetes Social History Quit smoking 2011 States he used to drink alcohol heavily for many years but quit completely 3-4 years ago No illicit drug use (Vibha Lau) Review of Systems Constitutional: COMPLAINS OF: Diaphoretic episodes, Fatigue, DENIES: Fever, Weight loss, Chills, Change in appetite Respiratory: DENIES: Cough Cardiovascular: DENIES: Chest pain Gastrointestinal: COMPLAINS OF: Abdominal pain, Nausea, Vomiting, DENIES: Black stools, Bloody stools, Constipation, Diarrhea, Swelling of Abdomen, Heartburn, Hematemesis Musculoskeletal: COMPLAINS OF: Joint pain Integumentary: DENIES: Abnormal pigmentation, Rash Hematologic/lymphatic: DENIES: Bruising Neurologic: DENIES: Headache Psychiatric: DENIES: Confusion (LauVibha) GI Exam Vitals I&O Vital Signs Date Time Temp Pulse Resp B/P Pulse Ox O2 Delivery O2 Flow Rate FiO2 05/01/17 08:00 97.3 56 16 162/78 96 05/01/17 04:00 97.9 55 16 127/61 100 05/01/17 00:00 97.8 73 20 105/62 97 04/30/17 23:55 76 04/30/17 21:57 18 97 04/30/17 21:51 64 18 143/77 98 04/30/17 21:40 18 04/30/17 19:33 97.7 61 18 202/91 97 Room Air I/O 04/30/17 04/30/17 04/30/17 05/01/17 05/01/17 05/01/17 07:00 15:00 23:00 07:00 15:00 23:00 Intake Total 1113 ml Balance 1113 ml Intake Oral 480 ml IV Total 633 ml # Voids 3 # Bowel Movements 0 Imaging Last Impressions Abdomen/Pelvis CT 04/30/172154 Signed Impressions: Service Date/Time: April 23:03 - CONCLUSION: 1. No evidence of acute abdominal or pelvic process. No masses are identified. 2. Mild prominence of the pancreatic head with dilatation of the pancreatic duct. MRI is recommended for further evaluation if clinically indicated. Floyd Diaz MD Laboratory Test 04/30/17 05/01/17 21:58 07:48 White Blood Count 8.6 TH/MM3 5.1 TH/MM3 Red Blood Count 4.93 MIL/MM3 4.34 MIL/MM3 Hemoglobin 13.8 GM/DL 12.2 GM/DL Hematocrit 42.0 % 36.7 % Mean Corpuscular Volume 85.2 FL 84.7 FL Mean Corpuscular Hemoglobin 28.0 PG 28.1 PG Mean Corpuscular Hemoglobin 32.9 % 33.2 % Concent Red Cell Distribution Width 13.4 % 13.6 % Platelet Count 203 TH/MM3 195 TH/MM3 Mean Platelet Volume 8.8 FL 8.3 FL Neutrophils (%) (Auto) 92.4 % 60.3 % Lymphocytes (%) (Auto) 5.6 % 28.3 % Monocytes (%) (Auto) 1.7 % 10.2 % Eosinophils (%) (Auto) 0.0 % 0.8 % Basophils (%) (Auto) 0.3 % 0.4 % Neutrophils # (Auto) 8.0 TH/MM3 3.1 TH/MM3 Lymphocytes # (Auto) 0.5 TH/MM3 1.5 TH/MM3 Monocytes # (Auto) 0.2 TH/MM3 0.5 TH/MM3 Eosinophils # (Auto) 0.0 TH/MM3 0.0 TH/MM3 Basophils # (Auto) 0.0 TH/MM3 0.0 TH/MM3 CBC Comment DIFF FINAL DIFF FINAL Differential Comment Sodium Level 135 MEQ/L 136 MEQ/L Potassium Level 4.3 MEQ/L 3.9 MEQ/L Chloride Level 100 MEQ/L 102 MEQ/L Carbon Dioxide Level 24.5 MEQ/L 27.8 MEQ/L Anion Gap 11 MEQ/L 6 MEQ/L Blood Urea Nitrogen 20 MG/DL 16 MG/DL Creatinine 1.17 MG/DL 1.13 MG/DL Estimat Glomerular Filtration 74 ML/MIN 77 ML/MIN Rate Random Glucose 202 MG/DL 190 MG/DL Calcium Level 9.0 MG/DL 8.1 MG/DL Total Bilirubin 1.1 MG/DL 1.2 MG/DL Aspartate Amino Transf 17 U/L 13 U/L (AST/SGOT) Alanine Aminotransferase 20 U/L 18 U/L (ALT/SGPT) Alkaline Phosphatase 104 U/L 87 U/L Total Protein 8.0 GM/DL 6.5 GM/DL Albumin 4.0 GM/DL 3.2 GM/DL Lipase 3157 U/L 725 U/L Physical Examination HEENT: Normocephalic; atraumatic CHEST: CTA CARDIAC: RRR. ABDOMEN: Soft, nondistended, mild-mod LUQ/Epigastric tenderness; no hepatosplenomegaly; bowel sounds are present in all four quadrants. EXTREMITIES: No clubbing, cyanosis, or edema. SKIN: Normal; no rash; no jaundice. SENIOR ASIC ENGINEER: No focal deficits; alert and oriented times three. (Vibha Lau) Assessment and Plan Plan ASSESSMENT: - Acute on chronic pancreatitis. Pt denies known hx of pancreatitis in past. He has past heavy etoh use- quit completely 3-4 years ago. Developed severe LUQ sharp pain radiating to his RUQ with n/v after eating turkey wings yesterday. Lipase was 3157 on admission. Abdomen/Pelvis CT (04/30/17)-----> 1. No evidence of acute abdominal or pelvic process. No masses are identified. 2. Mild prominence of the pancreatic head with dilatation of the pancreatic duct. MRI is recommended for further evaluation if clinically indicated. Lipase was elevated on admission at 3157. He was noted to have mild isolated elevation of his bilirubin and a MRCP(05/01/17)---> ill-defined fluid density area within the expected region of the junction of the head and body of the pancreas measuring 2.0 x 0.9 cm which is chronic and likely related to previous bouts of pancreatitis, two tiny cysts in within the body of the pancreas measuring 7 mm each, no evidence of solid mass within th epancreas or pancreatic ductal dilatation, multiple stable renal cysts, no evidence of biliary ductal dilatation. This appears to be acute on chronic pancreatitis. Hx PUD 10 years ago. No new meds, does have hx of high triglycerides, as well as family hx of pancreatitis. Clear liquids. PPI. Lipase improving. No evidence of biliary ductal dilatation on MRCP. Will get triglycerides. Supportive care - Anemia, mild. 12.2/36.7. No obvious blood loss. - Mild hypocalcemia. per primary - HTN, DM, Hyperlipidemia, COPD, Atrial fibrillation, TIA, BPH per primary PLAN: - Clear liquids - IVF - PPI - Triglycerides level - CBC, CMP, Lipase in am - No evidence of biliary dilatation on MRCP - Supportive care - Further recommendations to follow based on results of above - Pt seen and examined by Dr. Stallings and myself and this note was written on his behalf (Vibha Lau) Physician Comments Patient seen and examined Agree with above Continue with current supportive care Monitor labs Pain control (Anthony Stallings MD) Vibha Lau May 01, 2017 18:55 Anthony Stallings MD May 01, 2017 23:31
[2017-05-01 20:00] VITALS: BP 143/66; PULSE 50; PULSE 80; RESP 20; TEMP 97.7; O2SAT 98
[2017-05-02] VITALS: BP 156/68; PULSE 53; RESP 20; TEMP 98; O2SAT 97
[2017-05-02 04:00] VITALS: BP 154/73; PULSE 54; RESP 20; TEMP 98.3; O2SAT 97
[2017-05-02] MEDS: SODIUM CHLOR 0.9% 1000 ML INJ 1,000 ML IV SCH (05:27)
[2017-05-02] MEDS: INSULIN ASPART SUPPLEMENTAL SCALE SQ SCH ×2 (05:35→12:02)
[2017-05-02] MEDS: PANTOPRAZOLE SOD 20 MG DELAYED RELEASE TAB PO SCH (05:40)
[2017-05-02 06:19] LABS: AUTOMATED NEUTROPHIL # 1.7 TH/MM3 (1.8-7.7); BASOPHIL # 0.1 TH/MM3 (0-0.2); BASOPHIL % 1.6 % (0.0-2.0); EOSINOPHIL # 0.1 TH/MM3 (0-0.4); EOSINOPHIL % 2.8 % (0.0-4.0); HEMATOCRIT 37.5 % (39.0-51.0); HEMO FLAGS DIFF FINAL; LYMPH % 34.8 % (9.0-44.0); LYMPHOCYTE # 1.2 TH/MM3 (1.0-4.8); MEAN CELL VOLUME 85.5 FL (80.0-100.0); MEAN CORPUSCULAR HGB CONC 31.6 % (32.0-36.0); NEUT % 47.8 % (16.0-70.0); PLATELET COUNT 176 TH/MM3 (150-450); RED BLOOD COUNT 4.38 MIL/MM3 (4.50-5.90); RED CELL DISTRIBUTION WIDTH 13.5 % (11.6-17.2); WHITE BLOOD COUNT 3.6 TH/MM3 (4.0-11.0)
[2017-05-02 06:44] LABS: ALT (GPT) 15 U/L (12-78); ANION GAP 6 MEQ/L (5-15); AST (GOT) 13 U/L (15-37); BICARBONATE 28.4 MEQ/L (21.0-32.0); BLOOD UREA NITROGEN 9 MG/DL (7-18); CHLORIDE 107 MEQ/L (98-107); GLOMERULAR FILTRATION RATE 75 ML/MIN (>89); MAGNESIUM 1.7 MG/DL (1.5-2.5); POTASSIUM 4.2 MEQ/L (3.5-5.1); SODIUM (NA) 141 MEQ/L (136-145)
[2017-05-02 06:47] LABS: ALKALINE PHOSPHATASE 83 U/L (45-117); HDL CHOLESTEROL 53.3 MG/DL (40.0-60.0); LDL CHOLESTEROL 101 MG/DL (0-99); TOTAL BILIRUBIN ADULT 1.5 MG/DL (0.2-1.0)
[2017-05-02 08:00] VITALS: BP 182/77; PULSE 50; RESP 16; TEMP 98.4; O2SAT 97
[2017-05-02] MEDS: SODIUM CHLORIDE 0.9% FLUSH 10 ML FLUSH IV FLUSH SCH (08:25)
[2017-05-02] MEDS: ENOXAPARIN SODIUM 40 MG/0.4 ML SYRINGE SQ SCH ×2 (08:25→08:26)
[2017-05-02] MEDS: DILTIAZEM-CD 120 MG CAP ER PO SCH (08:25)
[2017-05-02] MEDS: ASPIRIN EC 81 MG TABEC PO SCH (08:25)
[2017-05-02 09:00] VITALS: PULSE 56
[2017-05-02] MEDS ORDERED: HYDR-3798 PO (11:06)
--- NOTE | 2017-05-02 11:08 | HHI.PR ---
Subjective Remarks F/u pancreatitis. Denies pain tolerating full liquid. Hx bradycardia on CCB dw RN Objective Vitals Vital Signs Date Time Temp Pulse Resp B/P Pulse Ox O2 Delivery O2 Flow Rate FiO2 05/02/17 09:00 56 05/02/17 08:00 98.4 50 16 182/77 97 05/02/17 04:00 98.3 54 20 154/73 97 05/02/17 00:00 97 Room Air 05/02/17 00:00 98.0 53 20 156/68 97 05/01/17 20:00 97.7 80 20 143/66 98 05/01/17 20:00 50 05/01/17 12:00 97.9 54 16 142/67 95 I/O 05/01/17 05/01/17 05/01/17 05/02/17 05/02/17 05/02/17 07:00 15:00 23:00 07:00 15:00 23:00 Intake Total 1113 ml 960 ml 2058 ml 1476 ml Output Total 850 ml 1200 ml 700 ml Balance 1113 ml 110 ml 858 ml 776 ml Intake Oral 480 ml 960 ml 600 ml 720 ml IV Total 633 ml 1458 ml 756 ml Output Urine Total 850 ml 1200 ml 700 ml # Voids 3 # Bowel Movements 0 0 1 Result Diagram: 05/02/17 0605/02/17599 Imaging Last Impressions Abdomen/Pelvis CT 04/30/172154 Signed Impressions: Service Date/Time: April 23:03 - CONCLUSION: 1. No evidence of acute abdominal or pelvic process. No masses are identified. 2. Mild prominence of the pancreatic head with dilatation of the pancreatic duct. MRI is recommended for further evaluation if clinically indicated. Floyd Diaz MD Objective Remarks GENERAL: Well-developed, well-nourished in no distress SKIN: Warm and dry. HEAD: Atraumatic. Normocephalic. EYES: Pupils equal and round. No scleral icterus. No injection or drainage. ENT: No nasal bleeding or discharge. Mucous membranes pink and moist. NECK: Trachea midline. No JVD. CARDIOVASCULAR: Regular rate and rhythm. RESPIRATORY: No accessory muscle use. Clear to auscultation. Breath sounds equal bilaterally. GASTROINTESTINAL: Abdomen soft, on tender upper quadrants, nondistended. MUSCULOSKELETAL: Extremities without clubbing, cyanosis, or edema. No obvious deformities. NEUROLOGICAL: Awake and alert. No obvious cranial nerve deficits. Motor grossly within normal limits. Five out of 5 muscle strength in the arms and legs. Normal speech. PSYCHIATRIC: Appropriate mood and affect; insight and judgment normal. Procedures none A/P Problem List: (1) Pancreatitis ICD Code: K85.90 Status: Acute Assessment and Plan Acute pancreatitis. CT shows Mild prominence of the pancreatic head with dilatation of the pancreatic duct. MRCP w/o mass or ductal dilatation. Resolving pain with normal lipase. Continue full liquid diet, pain management with IV morphine Chronic medical conditions of htn, dm- on insulin, hyperlipidemia, copd, CAD, afib, TIA and enlarged prostate. Stable continue outpatient medications as appropriate. Monitor fingerstick with sliding scale coverage. BP elevated 2/2 missed doses of CCB 2/2 bradycardia. EMR shows chronic bradycardia. Asymptomatic. Trial hydralazine DVT prophylaxis with SCD and Lovenox Discharge Planning Discharge patient to home Condition on discharge: Improved Regular Diet as tolerated after full liquid for 2 days Ad Ed[place] activity no driving Rx written: hydralazine Follow-up with primary care physician in 1 week I spent 35 minutes [id number] with the patient or on the alberto discussing the patient's disposition, prognosis, and plan of care with patient's caregivers. Over half the time spent was devoted to counseling the patient regarding placement in coordinating care with caregivers and case management. Problem Qualifiers (1) Pancreatitis: Qualified Code: K85.90 - Acute pancreatitis, unspecified complication status, unspecified pancreatitis type Reese Mchugh MD May 02, 2017 11:07
[2017-05-02 12:00] VITALS: BP 187/83; PULSE 47; RESP 16; TEMP 97.3; O2SAT 100
[2017-05-02 12:45] VITALS: BP 138/30
[2017-05-02] MEDS ORDERED: hydrALAZINE HCL 10 MG TAB PO SCH (14:00)
== END 2017-05-02 13:04 | disposition home or self-care (01) | DRG 440 ==
LOC: NEPC 19:27 → NEDA 23:29 → N04A 23:48
PROVIDERS: ADMIT Internal Medicine; ATTEND Internal Medicine
DX: K85.90 Acute pancreatitis without necrosis or infection, unspecified (principal); R00.1 Bradycardia, unspecified; J44.9 Chronic obstructive pulmonary disease, unspecified; E83.51 Hypocalcemia; E11.9 Type 2 diabetes mellitus without complications; Z79.4 Long term (current) use of insulin; I10 Essential (primary) hypertension; D64.9 Anemia, unspecified; E78.1 Pure hyperglyceridemia; K86.1 Other chronic pancreatitis; I25.2 Old myocardial infarction; E78.5 Hyperlipidemia, unspecified; Z86.73 Personal history of transient ischemic attack (TIA), and cerebral infarction without residual deficits; N40.0 Benign prostatic hyperplasia without lower urinary tract symptoms; Z87.11 Personal history of peptic ulcer disease; Z79.82 Long term (current) use of aspirin; Z87.891 Personal history of nicotine dependence; Z88.8 Allergy status to other drugs, medicaments and biological substances
CPT/HCPCS: 74177; 74181; 76377; 80053; 80061; 82948; 83690; 83735; 85025; 96374; 96375; J1650; J1815; J2060; J2270; J2405; J7030; Q9967

== ENCOUNTER 2018-02-28 17:37 | Emergency (ER) | payer MEDICARE, OTHER ==
[~2018-02-28] VITALS: Ht 172.7 cm; Wt 86.8 kg
[~2018-02-28 17:37] MED LIST changes: -ASPI-110 PO; +ASPI1TAB57 PO; -ATOR1TAB18 PO; +CHRO200C; +EZET10 PO; -GUAI100S5 PO; +HYDR-3583 PO; +HYDR-3798 PO; -OMEP20TA PO; +OMEP20TA93 PO; -ZETI10TA5 PO
[2018-02-28 17:41] VITALS: PULSE 55; RESP 16; TEMP 97.5; O2SAT 96
[2018-02-28 18:52] LABS: BILIRUBIN, URINE NEG (NEG); BLOOD, URINE MOD (NEG); GLUCOSE,URINE 1000 OR GREATER mg/dL (NEG); KETONE, URINE NEG (NEG); NITRITE,URINE NEG (NEG); URINE COLOR YELLOW (YELLW/STRAW); URINE LEUKOCYTE ESTERASE NEG (NEG)
[2018-02-28 19:21] LABS: SQUAMOUS EPITHELIAL CELL URINE 0-5 /hpf (0-5)
[2018-02-28] MEDS ORDERED: INSU1INJ13 SQ (20:07)
[2018-02-28 20:33] VITALS: BP 164/80; PULSE 53; RESP 18; O2SAT 97
[2018-02-28] MEDS ORDERED: INSULIN HUMAN REGULAR 1,000 UNITS/10 ML VIAL IV PUSH ONE (20:45)
[2018-02-28] MEDS ORDERED: SODIUM CHLORIDE 0.9% FLUSH 10 ML FLUSH IVF PRN (20:45)
[2018-02-28] MEDS ORDERED: SODIUM CHLOR 0.9% 1000 ML INJ 1,000 ML IV ONE (21:07)
[2018-02-28 22:06] LABS: CALCIUM 8.8 MG/DL (8.5-10.1)
[2018-02-28 22:07] LABS: BICARBONATE 23.2 MEQ/L (21.0-32.0)
[2018-02-28 22:14] LABS: CREATININE 1.6 MG/DL (0.60-1.30)
--- NOTE | 2018-02-28 22:16 | PD ---
HPI Chief Complaint: Diabetic Time Seen by Provider: 20:17 Travel History International Travel<30 days: No Contact w/Intl Traveler<30days: No Traveled to known affect area: No History of Present Illness HPI 73-year-old male arrives with high blood sugar at home, 505. He reports being [facility] where he received steroid injection for diagnosis of pneumonia. He reports upon his return home the blood sugar was 407. At that increased to 505 as noted and upon arrival here was 463. He reports using insulin this morning as he always does. Associated symptoms include polyuria polydipsia. No shortness of breath or chest pain. No nausea vomiting. Patient happens to note insomnia lately due to ambient noise from an adjacent street. PFSH Past Medical History Hx Anticoagulant Therapy: Yes (asa 81mg) Asthma: No Autoimmune Disease: No Blood Disorders: No Heart Rhythm Problems: No Cancer: No Cardiovascular Problems: Yes (htn on meds, ME x 1) High Cholesterol: Yes Chemotherapy: No Chest Pain: No Congestive Heart Failure: No COPD: Yes Cerebrovascular Accident: Yes (tia) Diabetes: Yes Patient Takes Glucophage: No Diminished Hearing: No Endocrine: Yes Gastrointestinal Disorders: Yes GERD: Yes Genitourinary: No Headaches: Yes (OCCASIONAL) Hiatal Hernia: No Hypertension: Yes Immune Disorder: No Musculoskeletal: No Neurologic: Yes Psychiatric: No Reproductive: No Respiratory: Yes (copd) Immunizations Current: Yes Migraines: No Seizures: No Sleep Apnea: No Thyroid Disease: No Tetanus Vaccination: > 5 Years Influenza Vaccination: No Past Surgical History AICD: No Appendectomy: Yes Arteriovenous Shunt: No Cardiac Surgery: No Ear Surgery: No Endocrine Surgery: No Eye Surgery: No Insulin Pump: No Joint Replacement: No Oral Surgery: No Pacemaker: No Thoracic Surgery: No Other Surgery: Yes (L KNEE) Social History Alcohol Use: No Tobacco Use: No (quit 4 years ago) Substance Use: No Allergies-Medications (Allergen,Severity, Reaction): Coded Allergies: meloxicam (Unverified Allergy, Severe, Wheezing, 02/28/18) pravastatin (Unverified Allergy, Severe, Anaphylaxis, 02/28/18) sitagliptin (Unverified Allergy, Severe, Shortness of Breath, 02/28/18) Uncoded Allergies: INVAKANO (Allergy, Mild, Itching, 02/28/18) . Reported Meds & Prescriptions Reported Meds & Active Scripts Active Reported Tresiba Flextouch Pen Inj (Insulin Degludec Inj) 600 unit/3 ML Pen 1 Units SQ Hydrocodone-Acetaminophen 10-325 mg Tab 1 Tab PO Q4H PRN Aspirin 81 (Aspirin) 81 Mg Tabdr 81 Mg PO DAILY Omeprazole 20 Mg Tab 20 Mg PO DAILY Zetia (Ezetimibe) 10 Mg Tab 10 Mg PO DAILY Diltiazem (Diltiazem HCl) 120 Mg Tab 120 Mg PO DAILY Review of Systems Except as stated in HPI: all other systems reviewed are Neg General / Constitutional: No: Fever Physical Exam Narrative GENERAL: 73-year-old male well-nourished well-developed Vital Signs Date Time Temp Pulse Resp B/P (MAP) Pulse Ox O2 Delivery O2 Flow Rate FiO2 02/28/18 21:07 Room Air 02/28/18 20:08 Room Air 02/28/18 17:41 97.5 55 16 96 SKIN: Warm and dry. HEAD: Atraumatic. Normocephalic. EYES: Pupils equal and round. No scleral icterus. No injection or drainage. ENT: No nasal bleeding or discharge. Mucous membranes pink and moist. NECK: Trachea midline. No JVD. CARDIOVASCULAR: Regular rate and rhythm. RESPIRATORY: No accessory muscle use. Clear to auscultation. Breath sounds equal bilaterally. GASTROINTESTINAL: Abdomen soft, non-tender, nondistended. Hepatic and splenic margins not palpable. MUSCULOSKELETAL: Extremities without clubbing, cyanosis, or edema. No obvious deformities. NEUROLOGICAL: Awake and alert. No obvious cranial nerve deficits. Motor grossly within normal limits. Five out of 5 muscle strength in the arms and legs. Normal speech. PSYCHIATRIC: Appropriate mood and affect; insight and judgment normal. Data Data Last Documented VS Vital Signs Date Time Temp Pulse Resp B/P (MAP) Pulse Ox O2 Delivery O2 Flow Rate FiO2 02/28/18 22:36 76 18 177/83 (114) 98 Room Air 02/28/18 17:41 97.5 Orders Orders Urinalysis - C+S If Indicated (02/28/18 18:37) Beta Hydroxybutyrate (Acetone) (02/28/18 20:37) Blood Glucose (02/28/18 20:37) Blood Glucose (02/28/18 21:37) Ecg Monitoring (02/28/18 20:37) Iv Access Insert/Monitor (02/28/18 20:37) Oximetry (02/28/18 20:37) Sodium Chlor 0.9% 1000 Ml Inj (Ns 1000 M (02/28/18 21:07) Sodium Chloride 0.9% Flush (Ns Flush) (02/28/18 20:45) Insulin Human Regular Inj (Novolin R Inj (02/28/18 20:45) Basic Metabolic Panel (Bmp) (02/28/18 21:04) Labs Laboratory Tests Test 02/28/18 18:25 02/28/18 21:04 Urine Collection Type CLEAN CATCH Urine Color YELLOW Urine Turbidity CLEAR Urine pH 5.0 Urine Specific [place] 1.010 Urine Protein NEG mg/dL Urine Glucose (UA) 1000 OR GREATER mg/dL Urine Ketones NEG mg/dL Urine Occult Blood MOD Urine Nitrite NEG Urine Bilirubin NEG Urine Urobilinogen 0.2 MG/DL Urine Leukocyte Esterase NEG Urine RBC 4-9 /hpf Urine Squamous Epithelial Cells 0-5 /hpf Microscopic Urinalysis Comment CULT NOT INDICATED Blood Urea Nitrogen 25 MG/DL Creatinine 1.60 MG/DL Random Glucose 437 MG/DL Calcium Level 8.8 MG/DL Sodium Level 132 MEQ/L Potassium Level 5.1 MEQ/L Chloride Level 98 MEQ/L Carbon Dioxide Level 23.2 MEQ/L Anion Gap 11 MEQ/L Estimat Glomerular Filtration Rate 51 ML/MIN B-Hydroxybutyrate 0.14 MMOL/L [facility] Medical Decision Making Medical Screen Exam Complete: Yes Emergency Medical Condition: Yes Medical Record Reviewed: Yes Differential Diagnosis Hyperglycemia, DKA, nonketotic hyperglycemia Narrative Course Hyperglycemia secondary to steroid use. We have controlled her blood sugar here. The patient is ready for discharge home. Instructions regarding insulin dosing at home provided. Patient verbalized understanding. CBC & BMP Diagram 02/28/18 21:04 Calcium Level 8.8 AG 11 beta hydroxyurea 0.16 Repeat blood sugar is 259 Pt ready for discharge home Diagnosis Primary Impression: Hyperglycemia Referrals: Primary Care Physician call for appointment Med/Other Pt SpecificInfo: No Change to Meds Disposition: 01 DISCHARGE HOME Condition: Stable Lucian David MD Feb 28, 2018 22:16
[2018-02-28 22:36] VITALS: BP 177/83; PULSE 76; RESP 18; O2SAT 98
== END 2018-02-28 23:00 | disposition home or self-care (01) ==
LOC: PHED 17:37
DX: E11.65 Type 2 diabetes mellitus with hyperglycemia (principal); Z79.4 Long term (current) use of insulin; I10 Essential (primary) hypertension; E78.00 Pure hypercholesterolemia, unspecified; J44.9 Chronic obstructive pulmonary disease, unspecified; Z86.73 Personal history of transient ischemic attack (TIA), and cerebral infarction without residual deficits; K21.9 Gastro-esophageal reflux disease without esophagitis; Z79.82 Long term (current) use of aspirin; Z79.899 Other long term (current) drug therapy
CPT/HCPCS: 80048; 81001; 82010; 96361; 96374; 99284; J1815; J7030

== ENCOUNTER 2018-03-03 01:05 | Emergency (ER) | payer OTHER ==
[~2018-03-03] VITALS: Ht 172.7 cm; Wt 88.0 kg
[~2018-03-03 01:05] MED LIST changes: -CHRO200C; -HYDR-3798 PO; +INSU1INJ13 SQ
[2018-03-03 01:45] VITALS: PULSE 44; RESP 18; TEMP 97.7; O2SAT 97
[2018-03-03] MEDS ORDERED: SODIUM CHLORIDE 0.9% FLUSH 10 ML FLUSH IVF PRN (04:00)
[2018-03-03 04:31] VITALS: RESP 19; O2SAT 98
[2018-03-03 04:46] LABS: AUTOMATED NEUTROPHIL # 2.2 TH/MM3 (1.8-7.7); BASOPHIL % 0.5 % (0.0-2.0); EOSINOPHIL # 0.1 TH/MM3 (0-0.4); EOSINOPHIL % 1.2 % (0.0-4.0); HEMATOCRIT 41.1 % (39.0-51.0); HEMOGLOBIN 13.5 GM/DL (13.0-17.0); LYMPH % 43.1 % (9.0-44.0); LYMPHOCYTE # 2.2 TH/MM3 (1.0-4.8); MEAN CELL VOLUME 85.1 FL (80.0-100.0); MEAN CORPUSCULAR HEMOGLOBIN 27.8 PG (27.0-34.0); MEAN CORPUSCULAR HGB CONC 32.7 % (32.0-36.0); MEAN PLATELET VOLUME 8.2 FL (7.0-11.0); MONO % 11.2 % (0.0-8.0); MONOCYTE # 0.6 TH/MM3 (0-0.9); PLATELET COUNT 240 TH/MM3 (150-450); RED BLOOD COUNT 4.83 MIL/MM3 (4.50-5.90); RED CELL DISTRIBUTION WIDTH 13.1 % (11.6-17.2)
[2018-03-03 04:47] VITALS: BP 191/87; PULSE 41; RESP 16; O2SAT 98
--- NOTE | 2018-03-03 04:47 | PD ---
HPI Chief Complaint: Diabetic Time Seen by Provider: 03:51 Travel History International Travel<30 days: No Contact w/Intl Traveler<30days: No Traveled to known affect area: No History of Present Illness HPI 73-year-old male presents to the emergency department for evaluation of elevated glucose. Patient is diabetic. Patient states he was seen yesterday in the emergency department at [place] for same complaint. Due to persistent elevation of his blood sugar he decided to come to this facility at this time. Patient denies fever chills nausea vomiting cough congestion sore throat earache chest pain shortness of breath palpitations abdominal pain flank pain new joint pain swelling or skin rash. Patient states he was recently seen at [facility] and had a steroid injection and since that time he has noticed that his blood sugars have been elevated. Patient has not followed up with his primary care provider. Patient states he feels well at this time. Patient did take additional dose of his Tresiba prior to coming to the emergency room. PFSH Past Medical History Narrative Medical Hypertension CAD NE CVA diabetes dyslipidemia COPD appendectomy no tobacco use; nursing notes reviewed Hx Anticoagulant Therapy: Yes (asa 81mg) Asthma: No Autoimmune Disease: No Blood Disorders: No Heart Rhythm Problems: No Cancer: No Cardiovascular Problems: Yes (htn on meds, NE x 1) High Cholesterol: Yes Chemotherapy: No Chest Pain: No Congestive Heart Failure: No COPD: Yes Cerebrovascular Accident: Yes (tia) Diabetes: Yes Patient Takes Glucophage: No Diminished Hearing: No Endocrine: Yes Gastrointestinal Disorders: Yes GERD: Yes Genitourinary: No Headaches: Yes (OCCASIONAL) Hiatal Hernia: No Hypertension: Yes Immune Disorder: No Musculoskeletal: No Neurologic: Yes Psychiatric: No Reproductive: No Respiratory: Yes (copd) Immunizations Current: Yes Migraines: No Seizures: No Sleep Apnea: No Thyroid Disease: No Tetanus Vaccination: > 5 Years Influenza Vaccination: No Past Surgical History AICD: No Appendectomy: Yes Arteriovenous Shunt: No Cardiac Surgery: No Ear Surgery: No Endocrine Surgery: No Eye Surgery: No Insulin Pump: No Joint Replacement: No Oral Surgery: No Pacemaker: No Thoracic Surgery: No Other Surgery: Yes (L KNEE) Social History Alcohol Use: No Tobacco Use: No (quit 4 years ago) Substance Use: No Allergies-Medications (Allergen,Severity, Reaction): Coded Allergies: meloxicam (Unverified Allergy, Severe, Wheezing, 03/03/18) pravastatin (Unverified Allergy, Severe, Anaphylaxis, 03/03/18) sitagliptin (Unverified Allergy, Severe, Shortness of Breath, 03/03/18) Uncoded Allergies: INVAKANO (Allergy, Mild, Itching, 02/28/18) . Reported Meds & Prescriptions Reported Meds & Active Scripts Active Reported Tresiba Flextouch Pen Inj (Insulin Degludec Inj) 600 unit/3 ML Pen 1 Units SQ Hydrocodone-Acetaminophen 10-325 mg Tab 1 Tab PO Q4H PRN Aspirin 81 (Aspirin) 81 Mg Tabdr 81 Mg PO DAILY Omeprazole 20 Mg Tab 20 Mg PO DAILY Zetia (Ezetimibe) 10 Mg Tab 10 Mg PO DAILY Diltiazem (Diltiazem HCl) 120 Mg Tab 120 Mg PO DAILY Review of Systems Except as stated in HPI: all other systems reviewed are Neg General / Constitutional: No: Fever, Chills HENT: No: Congestion Cardiovascular: No: Palpitations, Diaphoresis Respiratory: No: Cough, Shortness of Breath Gastrointestinal: No: Nausea, Vomiting, Abdominal Pain Genitourinary: No: Frequency, Dysuria Musculoskeletal: No: Myalgias, Arthralgias Skin: No Rash Neurologic: No: Weakness, Dizziness Psychiatric: No: Anxiety, Depression Endocrine: No: Heat Intolerance, Cold Intolerance Hematologic/Lymphatic: No: Easy Bruising Physical Exam Narrative GENERAL: Well-developed well-nourished male no acute distress no respiratory distress SKIN: Warm and dry. HEAD: Normocephalic. EYES: No scleral icterus. No injection or drainage. NECK: Supple, trachea midline. No JVD or lymphadenopathy. CARDIOVASCULAR: Regular rate and rhythm without murmurs, gallops, or rubs. RESPIRATORY: Breath sounds equal bilaterally. No accessory muscle use. GASTROINTESTINAL: Abdomen soft, non-tender, nondistended. MUSCULOSKELETAL: No cyanosis, or edema. BACK: Nontender without obvious deformity. No CVA tenderness. Data Data Last Documented VS Vital Signs Date Time Temp Pulse Resp B/P (MAP) Pulse Ox O2 Delivery O2 Flow Rate FiO2 03/03/18 04:47 41 16 191/87 (121) 98 Room Air 03/03/18 01:45 97.7 Orders Orders Electrocardiogram (03/03/18 03:51) Complete Blood Count With Diff (03/03/18 03:51) Comprehensive Metabolic Panel (03/03/18 03:51) Magnesium (Mg) (03/03/18 03:51) Beta Hydroxybutyrate (Acetone) (03/03/18 03:51) Urinalysis - C+S If Indicated (03/03/18 03:51) Chest, Single Ap (03/03/18 03:51) Ecg Monitoring (03/03/18 03:51) Iv Access Insert/Monitor (03/03/18 03:51) Oximetry (03/03/18 03:51) NPO (03/03/18 03:51) Sodium Chloride 0.9% Flush (Ns Flush) (03/03/18 04:00) Troponin I (03/03/18 03:51) Ed Discharge Order (03/03/18 06:37) Labs Laboratory Tests Test 03/03/18 04:30 03/03/18 05:30 White Blood Count 5.0 TH/MM3 Red Blood Count 4.83 MIL/MM3 Hemoglobin 13.5 GM/DL Hematocrit 41.1 % Mean Corpuscular Volume 85.1 FL Mean Corpuscular Hemoglobin 27.8 PG Mean Corpuscular Hemoglobin Concent 32.7 % Red Cell Distribution Width 13.1 % Platelet Count 240 TH/MM3 Mean Platelet Volume 8.2 FL Neutrophils (%) (Auto) 44.0 % Lymphocytes (%) (Auto) 43.1 % Monocytes (%) (Auto) 11.2 % Eosinophils (%) (Auto) 1.2 % Basophils (%) (Auto) 0.5 % Neutrophils # (Auto) 2.2 TH/MM3 Lymphocytes # (Auto) 2.2 TH/MM3 Monocytes # (Auto) 0.6 TH/MM3 Eosinophils # (Auto) 0.1 TH/MM3 Basophils # (Auto) 0.0 TH/MM3 CBC Comment DIFF FINAL Differential Comment Blood Urea Nitrogen 21 MG/DL Creatinine 1.24 MG/DL Random Glucose 178 MG/DL Total Protein 7.6 GM/DL Albumin 3.7 GM/DL Calcium Level 8.7 MG/DL Magnesium Level 2.0 MG/DL Alkaline Phosphatase 105 U/L Aspartate Amino Transf (AST/SGOT) 24 U/L Alanine Aminotransferase (ALT/SGPT) 36 U/L Total Bilirubin 0.6 MG/DL Sodium Level 139 MEQ/L Potassium Level 4.1 MEQ/L Chloride Level 104 MEQ/L Carbon Dioxide Level 31.1 MEQ/L Anion Gap 4 MEQ/L Estimat Glomerular Filtration Rate 69 ML/MIN Troponin I LESS THAN 0.02 NG/ML B-Hydroxybutyrate 0.06 MMOL/L Urine Color LIGHT-YELLOW Urine Turbidity CLEAR Urine pH 5.0 Urine Specific [place] 1.014 Urine Protein NEG mg/dL Urine Glucose (UA) NEG mg/dL Urine Ketones NEG mg/dL Urine Occult Blood TRACE Urine Nitrite NEG Urine Bilirubin NEG Urine Urobilinogen LESS THAN 2.0 MG/DL Urine Leukocyte Esterase NEG Urine RBC LESS THAN 1 /hpf Urine WBC LESS THAN 1 /hpf Urine Squamous Epithelial Cells <1 /hpf Urine Mucus FEW /lpf Microscopic Urinalysis Comment CULT NOT INDICATED MDM Medical Decision Making Medical Screen Exam Complete: Yes Emergency Medical Condition: Yes Medical Record Reviewed: Yes Interpretation(s) EKG sinus bradycardia rate 42 nonspecific septal T-wave changes no acute ST elevation Last Impressions Chest X-Ray 03/03/18 0351 Signed Impressions: Service Date/Time: Saturday, March 03, 2018 04:00 - CONCLUSION: No acute cardiopulmonary disease demonstrated. Kiet Hutchison MD CBC & BMP Diagram 03/03/18 04:30 Total Protein 7.6, Albumin 3.7, Calcium Level 8.7, Magnesium Level 2.0, Alkaline Phosphatase 105, Aspartate Amino Transf (AST/SGOT) 24, Alanine Aminotransferase (ALT/SGPT) 36, Total Bilirubin 0.6 Vital Signs Date Time Temp Pulse Resp B/P (MAP) Pulse Ox O2 Delivery O2 Flow Rate FiO2 03/03/18 04:47 41 16 191/87 (121) 98 Room Air 03/03/18 04:43 42 16 98 Room Air 03/03/18 04:31 19 98 Room Air 03/03/18 01:45 97.7 44 18 97 bhb: 0.06, not elevated Differential Diagnosis Hyperglycemia, uncontrolled diabetes, DKA, ACS, electrolyte disturbance Narrative Course Patient placed on security monitor with continuous pulse oximetry IV access obtained specimens collected and sent for resulting EKG sinus bradycardia without acute ST elevation or injury pattern this is noted on prior EKG 04/15/17 Lab values grossly normal range serum glucose 178, serum acetone not elevated Diagnosis Primary Impression: Hyperglycemia Referrals: Primary Care Physician call for appointment Patient Instructions: General Instructions Additional Instructions: Follow-up with your primary care provider Return to the emergency department for any concerns or change in condition Monitor blood sugars closely Follow diabetic diet Disposition: 01 DISCHARGE HOME Condition: Stable Brenda Fisher MD Mar 03, 2018 04:47
[2018-03-03 05:11] LABS: ALBUMIN 3.7 GM/DL (3.4-5.0); ALT (GPT) 36 U/L (12-78); AST (GOT) 24 U/L (15-37); BICARBONATE 31.1 MEQ/L (21.0-32.0); BLOOD UREA NITROGEN 21 MG/DL (7-18); CALCIUM 8.7 MG/DL (8.5-10.1); CHLORIDE 104 MEQ/L (98-107); CREATININE 1.24 MG/DL (0.60-1.30); GLOMERULAR FILTRATION RATE 69 ML/MIN (>89); GLUCOSE,RANDOM 178 MG/DL (74-106); SODIUM (NA) 139 MEQ/L (136-145)
[2018-03-03 05:15] LABS: ALKALINE PHOSPHATASE 105 U/L (45-117); TOTAL BILIRUBIN ADULT 0.6 MG/DL (0.2-1.0); TOTAL PROTEIN 7.6 GM/DL (6.4-8.2); TROPONIN I LESS THAN 0.02 NG/ML (0.02-0.05)
--- NOTE | 2018-03-03 05:26 | RADRPT ---
EXAM DATE/TIME: 03/03/2018 04:00 [place] COMPARISON: CHEST SINGLE AP, April 15, 2017, 23:10. INDICATIONS : Short of breath. MEDICAL HISTORY : Diabetes mellitus type II. Hypertension SURGICAL HISTORY : None. ENCOUNTER: Initial ACUITY: 1 day PAIN SCORE: 0/10 LOCATION: Bilateral chest FINDINGS: A single view of the chest demonstrates the lungs to be symmetrically aerated without evidence of mas s, infiltrate or effusion. Tortuous mediastinal vessels again noted. The cardiomediastinal contours are otherwise unremarkable. Osseous structures are intact. CONCLUSION: No acute cardiopulmonary disease demonstrated. Kiet Hutchison MD on March 03, 2018 at 5:24 Board Certified Radiologist. This report was verified electronically.
[2018-03-03 06:37] LABS: BILIRUBIN, URINE NEG (NEG); BLOOD, URINE TRACE (NEG); GLUCOSE,URINE NEG (NEG); KETONE, URINE NEG (NEG); MUCUS URINE FEW /lpf (OCC); NITRITE,URINE NEG (NEG); SQUAMOUS EPITHELIAL CELL URINE <1 /hpf (0-5); URINE COLOR LIGHT-YELLOW (YELLW/STRAW); URINE LEUKOCYTE ESTERASE NEG (NEG)
--- NOTE | 2018-03-03 12:14 | EKG ---
Date Performed: 03/03/2018 Time Performed: 04:35:23 PTAGE: 73 years EKG: SINUS BRADYCARDIA BORDERLINE ECG PREVIOUS TRACING : 04/15/2017 23.44 Compared to previous tracing, rate slower DOCTOR: Amado Gill Interpretating Date/Time 03/03/2018 12:13:15
== END 2018-03-03 07:02 | disposition home or self-care (01) ==
LOC: NEPC 01:05
DX: E11.65 Type 2 diabetes mellitus with hyperglycemia (principal); R00.1 Bradycardia, unspecified; E78.00 Pure hypercholesterolemia, unspecified; K21.9 Gastro-esophageal reflux disease without esophagitis; I10 Essential (primary) hypertension; Z79.4 Long term (current) use of insulin; Z79.82 Long term (current) use of aspirin; Z87.891 Personal history of nicotine dependence
CPT/HCPCS: 71045; 80053; 81001; 82010; 83735; 84484; 85025; 93005; 99285

== ENCOUNTER 2018-07-29 22:51 | Inpatient (IN) ==
[2018-07-29] MEDS ORDERED: Morphine Inj 4 MG/ML Vial IV.PUSH ONE (23:22)
[2018-07-29] MEDS ORDERED: Sod Chloride 0.9% Inj 1,000 ML IV.CONT SCH (23:30)
--- NOTE | 2018-07-29 23:49 | XR ---
EXAM DATE: 07/29/2018 11:40 PM EDT AGE/SEX: 73 years / Male INDICATIONS: Chest and abdomen pain after eating dinner today. CLINICAL DATA: This is the patient's initial encounter. Patient reports that signs and symptoms have been present for 1 day and indicates a pain score of 5/10. MEDICAL/SURGICAL HISTORY: . Hypertension. Diabetes mellitus type 2. Chronic obstructive pulmona ry disease. None. COMPARISON: [facility] [place], CHEST 1V SINGLE AP, 07/07/2018. . FINDINGS: No new focal pleural or parenchymal opacities. Minimal bibasilar airspace disease similar to prior ex am, presumably atelectasis. The cardiomediastinal contours are stable. Osseous structures are intact . CONCLUSION: 1. No significant interval change or acute abnormality. 2. Minimal bibasilar airspace disease, presumably atelectasis. Electronically signed by: Eddie Villa MD 07/29/2018 11:48 PM EDT
[2018-07-30 01:04] LABS: Chloride 102 meq/L (98-107); Potassium 4.3 meq/L (3.5-5.1); Sodium 137 meq/L (136-145)
[2018-07-30 01:07] LABS: Albumin 3.7 g/dL (3.4-5.0); Anion Gap 7 meq/L (5-15); Calcium 8.3 mg/dL (8.5-10.1); Carbon Dioxide 28.1 meq/L (21.0-32.0)
[2018-07-30 01:08] LABS: Blood Urea Nitrogen 21 mg/dL (7-18); Glucose,Random 153 mg/dL (74-106)
[2018-07-30 01:10] LABS: Alanine Aminotransferase 27 U/L (12-78); Aspartate Aminotransferase 20 U/L (15-37); Glomerular Filtration Rate 60 mL/min (>89)
[2018-07-30 01:11] LABS: Activated Partial Thrombo Time 29.7 sec (24.3-30.1); INR 1.1 Ratio; Prothrombin Time 11.5 sec (9.8-11.6)
[2018-07-30 01:12] LABS: Total Protein 7.5 g/dL (6.4-8.2)
[2018-07-30 01:13] LABS: Alkaline Phosphatase 107 U/L (45-117); Lipase 13835 U/L (73-393)
[2018-07-30 01:29] LABS: Baso % (Auto) 0.1 % (0.0-2.0); Creatine Kinase 75 U/L (39-308); Eos % (Auto) 0.4 % (0.0-4.0); Hematocrit 42.3 % (39.0-51.0); Hemoglobin 13.9 gm/dL (13.0-17.0); Lymph # (Auto) 0.8 th/mm3 (1.0-4.8); Lymph % (Auto) 11.1 % (9.0-44.0); Mean Corpuscular HGB Conc 32.9 % (32.0-36.0); Mean Corpuscular Hemoglobin 28.4 pg (27.0-34.0); Mean Corpuscular Volume 86.3 fL (80.0-100.0); Mean Platelet Volume 8.9 fL (7.0-11.0); Mono # (Auto) 0.7 th/mm3 (0.0-0.9); Neut # (Auto) 5.9 th/mm3 (1.8-7.7); Neut % (Auto) 79.4 % (16.0-70.0); Platelet Count 216 th/mm3 (150-450); Red Blood Count 4.89 mil/mm3 (4.50-5.90); Red Cell Distribution Width 13.5 % (11.6-17.2); White Blood Count 7.4 th/mm3 (4.0-11.0)
[2018-07-30] MEDS: Heparin - SQ 10,000 UNITS/ML Vial SQ SCH ×3 (04:05→20:05)
[2018-07-30] MEDS: Morphine Sulfate Inj 2 MG/ML Vial IV.PUSH PRN ×2 (04:05→07:42)
[2018-07-30 04:38] LABS: Bilirubin,Urine Negative (Negative); Clarity,Urine Clear (Clear); Color,Urine Yellow (Yellw/Straw); Glucose,Urine (UA) Negative (Negative); Leukocyte Esterase,Urine Negative (Negative); Nitrite,Urine Negative (Negative); Urobilinogen,Urine 0.2 mg/dL (Less than 2)
--- NOTE | 2018-07-30 04:48 | ED ---
HPI General Chief Complaint: Abdominal Pain Stated Complaint: Abd pain,vomiting x 1 hr Source: patient and family Mode of arrival: ambulatory Limitations: no limitations History of Present Illness HPI narrative: 73-year-old male with history of pancreatitis and atrial fibrillation presents to the emergency department by private transportation the care of his spouse for evaluation of 1 hour of periumbilical abdominal pain with nausea and vomiting. Patient had hamburger with gravy for dinner along with other family members and no one else had similar symptoms. Patient does not report any fever chills chest pain shortness of breath palpitations near syncope or syncope also no referred neck jaw back shoulder arm pain. Patient states pain is severe in the abdomen. Similar to previous episodes of pancreatitis per . No report of hematemesis coffee-ground emesis melena hematochezia. Patient with episodes of dry heaves and vomiting in the emergency department with abdominal pain. MD complaint: abdominal pain Onset (ago): hour(s) Pain Consistency: constant Location: periumbilical Severity: severe Severity scale (1-10): 8 Quality: cramping, aching and fullness Radiation: none Migration to: epigastric Relieving factors: nothing Exacerbating factors: nothing Associated symptoms: nausea and vomiting Treatments prior to arrival: other (none) Related Data Home Medications Medication Instructions Recorded Confirmed aspirin 81 mg PO DAILY 07/07/18 07/30/18 atorvastatin [Lipitor] 20 mg PO DAILY 07/07/18 07/30/18 diltiazem HCl 120 mg PO DAILY 07/07/18 07/30/18 hydrocodone-acetaminophen 1 tab PO Q4-6H PRN 07/07/18 07/30/18 omeprazole 20 mg PO DAILY 07/07/18 07/30/18 glimepiride 2 mg PO QAM 07/30/18 07/30/18 Allergies Allergy/AdvReac Type Severity Reaction Status Date / Time meloxicam Allergy Severe Wheezing Verified 07/29/18 23:45 pravastatin Allergy Severe Anaphylaxis Verified 07/29/18 23:45 sitagliptin Allergy Severe Shortness Verified 07/29/18 23:45 of Breath canagliflozin [From Invokana] Allergy Itching Verified 07/29/18 23:48 Review of Systems ROS: all other systems reviewed are negative Constitutional Denies body ache(s), Denies chills and Denies fever(s) Eyes Denies blurry vision and Denies diplopia ENT Denies dizziness and Denies sore throat Cardiovascular Denies chest pain and Denies dyspnea Respiratory Denies cough and Denies dyspnea Gastrointestinal Reports abdominal pain, Reports belching, Reports nausea and Reports vomiting Genitourinary Reports system reviewed and no additional complaints, except as docu Musculoskeletal Denies back pain and Denies radiating pain into limb Integumentary/Breasts Denies rash Neurologic Denies syncope and Denies headache(s) Hematologic/Lymphatic Denies easy bruising [facility] Medical History Medical History GERD (gastroesophageal reflux disease) (Acute) HTN (hypertension) (Acute) History of atrial fibrillation (Acute) History of chronic back pain (Acute) Bradycardia (Acute) Diabetes (Acute) Social History Social History Substance History: No History of Abuse Second Hand Smoke Exposure: No Smoking Status: Never smoker Tobacco Type: Cigarettes How Often Do You Have a Drink Containing Alcohol: Never Recent Travel in [facility] within the Last 8 Weeks: No Recent Out of Country Travel within the Last 8 Weeks: No Immunization History Tetanus Immunization: Unsure Hx Influenza Vaccine This Season: No Exam Narrative Exam Narrative: GENERAL: Well-nourished, well-developed patient. Mildly ill- appearing male in no acute respiratory distress. SKIN: Focused skin assessment warm/dry. HEAD: Normocephalic. EYES: No scleral icterus. No injection or drainage. NECK: Supple, trachea midline. No JVD or lymphadenopathy. CARDIOVASCULAR: Regular rate and rhythm without murmurs, gallops, or rubs. RESPIRATORY: Breath sounds equal bilaterally. No accessory muscle use. Reproducible periumbilical tenderness without palpable pulsatile mass guarding or rebound. Nondistended. GASTROINTESTINAL: Abdomen soft, non-tender, nondistended. MUSCULOSKELETAL: No cyanosis, or edema. BACK: Nontender without obvious deformity. No CVA tenderness. Course Initial Documented Vital Signs Temperature 98.5 F 07/29/18 22:55 Pulse Rate 54 L 07/29/18 22:55 Respiratory Rate 18 07/29/18 22:55 Blood Pressure 225/95 H 07/29/18 22:55 Pulse Oximetry 96 07/29/18 22:55 Last Documented Vital Signs Temperature 98.5 F 07/29/18 22:56 Pulse Rate 52 L 07/30/18 03:15 Respiratory Rate 20 07/30/18 03:15 Blood Pressure 168/74 H 07/30/18 03:15 Pulse Oximetry 94 L 07/29/18 23:51 Critical Care Time Critical Care Time: Yes Total Critical Care Time: 35 Attestation: Aggregate critical care time was 35 minutes. Time to perform other separately billable procedures was not included in the critical care time. My time did not include minutes spent treating any other patients simultaneously or on activities that did not directly contribute to the patient's treatment. The services I provided to this patient were to treat and/or prevent clinically significant deterioration that could result in: Hemorrhagic pancreatitis, septic shock, arrhythmia, I provided critical care services requiring my management, as noted below: Chart data review, documentation time, medication orders and management, vital sign assessments/reviewing monitor data, ordering and reviewing lab tests, ordering and interpreting/reviewing x-rays and diagnostic studies, care of the patient and discussion of the patient with the admitting physicians. Medical Decision Making MDM Narrative Medical decision making narrative: 73-year-old male presents with abdominal pain with nausea vomiting prior history of pancreatitis denies chest pain near syncope syncope hematemesis or coffee-ground emesis. Pain is severe. Patient multiple episodes of vomiting. Onset after eating dinner. No other family members with similar symptoms. Patient placed on environmental monitoring technician IV access obtain EKG performed shows sinus rhythm without acute ST elevation or injury pattern specimens collected and sent for resulting patient administered Zofran and morphine for pain relief; CT abdomen and pelvis ordered. Patient improved after IV fluids and Zofran and lipase is markedly elevated greater than 13,000 consistent with pancreatitis this is discussed with medicine service for admission Patient admitted to medicine service CT abdomen pelvis pending Medical Screen Exam Complete: Yes Emergency Medical Condition: Yes Differential Diagnosis Differential Diagnosis: Abdominal pain gastritis peptic ulcer disease cholecystitis pancreatitis abdominal aortic aneurysm ischemic colitis Medical Records Medical records reviewed: Yes I reviewed the patient's medical records. Lab Data Lab results reviewed: Yes I reviewed the patient's lab results. Result diagrams: 07/30/18 00:30 07/30/18 00:30 Lab Results 07/30/18 07/30/18 07/30/18 Range/Units 00:30 00:30 00:30 CBC w Diff Auto diff final WBC 7.4 (4.0-11.0) th/mm3 RBC 4.89 (4.50-5.90) mil/mm3 Hgb 13.9 (13.0-17.0) gm/dL Hct 42.3 (39.0-51.0) % MCV 86.3 (80.0-100.0) fL MCH 28.4 (27.0-34.0) pg MCHC 32.9 (32.0-36.0) % RDW 13.5 (11.6-17.2) % Plt Count 216 D (150-450) th/mm3 MPV 8.9 (7.0-11.0) fL Neut % (Auto) 79.4 H (16.0-70.0) % Lymph % (Auto) 11.1 (9.0-44.0) % [place] % (Auto) 9.0 H (0.0-8.0) % Eos % (Auto) 0.4 (0.0-4.0) % Baso % (Auto) 0.1 (0.0-2.0) % Neut # (Auto) 5.9 (1.8-7.7) th/mm3 Lymph # (Auto) 0.8 L (1.0-4.8) th/mm3 [place] # (Auto) 0.7 (0.0-0.9) th/mm3 Eos # (Auto) 0.0 (0.0-0.4) th/mm3 Baso # (Auto) 0.0 (0.0-0.2) th/mm3 WBC Differential . Differential Comment . PT 11.5 (9.8-11.6) sec INR 1.1 Ratio APTT 29.7 (24.3-30.1) sec Sodium 137 (136-145) meq/L Potassium 4.3 (3.5-5.1) meq/L Chloride 102 (98-107) meq/L Carbon Dioxide 28.1 (21.0-32.0) meq/L Anion Gap 7 (5-15) meq/L BUN 21 H (7-18) mg/dL Creatinine 1.40 H (0.60-1.30) mg/dL Estimated GFR 60 L (>89) mL/min POC Glucose (68-110) mg/dl Random Glucose 153 H (74-106) mg/dL Lactic Acid (0.4-2.0) mmol/L Calcium 8.3 L (8.5-10.1) mg/dL Total Bilirubin 0.5 (0.2-1.0) mg/dL AST 20 (15-37) U/L ALT 27 (12-78) U/L Alkaline Phosphatase 107 (45-117) U/L Total Creatine Kinase 75 (39-308) U/L Troponin I Less than 0.02 L (0.02-0.05) ng/mL Total Protein 7.5 (6.4-8.2) g/dL Albumin 3.7 (3.4-5.0) g/dL Lipase 88052 H (73-393) U/L Urine Color (Yellw/Straw) Urine Clarity (Clear) Urine pH (5.0-8.5) Ur Specific [place] (1.002-1.035) Urine Protein (Neg-Trace) mg/dL Urine Glucose (UA) (Negative) mg/dL Urine Ketones (Negative) mg/dL Urine Occult Blood (Negative) Urine Nitrate (Negative) Urine Bilirubin (Negative) Urine Urobilinogen (Less than 2) mg/dL Ur Leukocyte Esterase (Negative) Urine RBC (0-3) /hpf Ur Squamous Epith Cells (0-5) /hpf Micro UA Comment Ur Microscopic Review Urine Culture Comments Blood Type Antibody Screen 07/30/18 07/30/18 07/30/18 Range/Units 00:30 00:35 00:56 CBC w Diff WBC (4.0-11.0) th/mm3 RBC (4.50-5.90) mil/mm3 Hgb (13.0-17.0) gm/dL Hct (39.0-51.0) % MCV (80.0-100.0) fL MCH (27.0-34.0) pg MCHC (32.0-36.0) % RDW (11.6-17.2) % Plt Count (150-450) th/mm3 MPV (7.0-11.0) fL Neut % (Auto) (16.0-70.0) % Lymph % (Auto) (9.0-44.0) % [place] % (Auto) (0.0-8.0) % Eos % (Auto) (0.0-4.0) % Baso % (Auto) (0.0-2.0) % Neut # (Auto) (1.8-7.7) th/mm3 Lymph # (Auto) (1.0-4.8) th/mm3 [place] # (Auto) (0.0-0.9) th/mm3 Eos # (Auto) (0.0-0.4) th/mm3 Baso # (Auto) (0.0-0.2) th/mm3 WBC Differential Differential Comment PT (9.8-11.6) sec INR Ratio APTT (24.3-30.1) sec Sodium (136-145) meq/L Potassium (3.5-5.1) meq/L Chloride (98-107) meq/L Carbon Dioxide (21.0-32.0) meq/L Anion Gap (5-15) meq/L BUN (7-18) mg/dL Creatinine (0.60-1.30) mg/dL Estimated GFR (>89) mL/min POC Glucose 159 H (68-110) mg/dl Random Glucose (74-106) mg/dL Lactic Acid 1.4 (0.4-2.0) mmol/L Calcium (8.5-10.1) mg/dL Total Bilirubin (0.2-1.0) mg/dL AST (15-37) U/L ALT (12-78) U/L Alkaline Phosphatase (45-117) U/L Total Creatine Kinase (39-308) U/L Troponin I (0.02-0.05) ng/mL Total Protein (6.4-8.2) g/dL Albumin (3.4-5.0) g/dL Lipase (73-393) U/L Urine Color (Yellw/Straw) Urine Clarity (Clear) Urine pH (5.0-8.5) Ur Specific [place] (1.002-1.035) Urine Protein (Neg-Trace) mg/dL Urine Glucose (UA) (Negative) mg/dL Urine Ketones (Negative) mg/dL Urine Occult Blood (Negative) Urine Nitrate (Negative) Urine Bilirubin (Negative) Urine Urobilinogen (Less than 2) mg/dL Ur Leukocyte Esterase (Negative) Urine RBC (0-3) /hpf Ur Squamous Epith Cells (0-5) /hpf Micro UA Comment Ur Microscopic Review Urine Culture Comments Blood Type O Positive Antibody Screen Negative 07/30/18 Range/Units 04:30 CBC w Diff WBC (4.0-11.0) th/mm3 RBC (4.50-5.90) mil/mm3 Hgb (13.0-17.0) gm/dL Hct (39.0-51.0) % MCV (80.0-100.0) fL MCH (27.0-34.0) pg MCHC (32.0-36.0) % RDW (11.6-17.2) % Plt Count (150-450) th/mm3 MPV (7.0-11.0) fL Neut % (Auto) (16.0-70.0) % Lymph % (Auto) (9.0-44.0) % [place] % (Auto) (0.0-8.0) % Eos % (Auto) (0.0-4.0) % Baso % (Auto) (0.0-2.0) % Neut # (Auto) (1.8-7.7) th/mm3 Lymph # (Auto) (1.0-4.8) th/mm3 [place] # (Auto) (0.0-0.9) th/mm3 Eos # (Auto) (0.0-0.4) th/mm3 Baso # (Auto) (0.0-0.2) th/mm3 WBC Differential Differential Comment PT (9.8-11.6) sec INR Ratio APTT (24.3-30.1) sec Sodium (136-145) meq/L Potassium (3.5-5.1) meq/L Chloride (98-107) meq/L Carbon Dioxide (21.0-32.0) meq/L Anion Gap (5-15) meq/L BUN (7-18) mg/dL Creatinine (0.60-1.30) mg/dL Estimated GFR (>89) mL/min POC Glucose (68-110) mg/dl Random Glucose (74-106) mg/dL Lactic Acid (0.4-2.0) mmol/L Calcium (8.5-10.1) mg/dL Total Bilirubin (0.2-1.0) mg/dL AST (15-37) U/L ALT (12-78) U/L Alkaline Phosphatase (45-117) U/L Total Creatine Kinase (39-308) U/L Troponin I (0.02-0.05) ng/mL Total Protein (6.4-8.2) g/dL Albumin (3.4-5.0) g/dL Lipase (73-393) U/L Urine Color Yellow (Yellw/Straw) Urine Clarity Clear (Clear) Urine pH 6.0 (5.0-8.5) Ur Specific [place] 1.020 (1.002-1.035) Urine Protein Trace (Neg-Trace) mg/dL Urine Glucose (UA) Negative (Negative) mg/dL Urine Ketones Negative (Negative) mg/dL Urine Occult Blood Trace (Negative) Urine Nitrate Negative (Negative) Urine Bilirubin Negative (Negative) Urine Urobilinogen 0.2 (Less than 2) mg/dL Ur Leukocyte Esterase Negative (Negative) Urine RBC 0-3 (0-3) /hpf Ur Squamous Epith Cells 0-5 (0-5) /hpf Micro UA Comment Culture not ind Ur Microscopic Review Microscopic reviewed Urine Culture Comments Culture not ind Blood Type Antibody Screen Imaging Data Radiologist's impression: Chest X-Ray 07/29/18 23:22 CONCLUSION: 1. No significant interval change or acute abnormality. 2. Minimal bibasilar airspace disease, presumably atelectasis. Abdomen/Pelvis CT 07/30/18 02:40 CONCLUSION: 1. No acute CT abnormality in the abdomen or pelvis. 2. Minimal right lung base groundglass opacities, likely atelectasis. 3. Stable prominence of the pancreatic head and central pancreatic duct likely reflecting sequela of prior pancreatitis. 4. Bilateral renal cysts some of which are too small to fully characterize. 5. Additional ancillary findings include colonic diverticulosis, small fat- containing periumbilical hernia, nonspecific prostate enlargement, hepatic steatosis, and degenerative spondylosis of the lumbar spine. ECG Data EKG Prior to Arrival: No Attestation: I personally reviewed and interpreted this ECG as follows: Prior ECG tracings: not available for review Discharge Plan Discharge Disposition Patient Disposition: 30 Still Patient Discharge Condition Condition: Stable Discharge Details Diagnosis: Pancreatitis Physicians Team ED Provider: Brenda Fisher Primary Care Provider: Aranza Hannah Attending Provider: Jose E Garcia Status ED Status: Left Department Discharge Information Discharge Date/Time: 07/30/18 05:20
[2018-07-30 04:49] LABS: RBC,Urine 0-3 /hpf (0-3); Squamous Epithelial Cell,Urine 0-5 /hpf (0-5)
--- NOTE | 2018-07-30 05:03 | CT ---
EXAM DATE: 07/30/2018 4:31 AM EDT AGE/SEX: 73 years / Male INDICATIONS: Abdominal pain. Vomiting. CLINICAL DATA: This is the patient's initial encounter. Patient reports that signs and symptoms have been present for 1 day and indicates a pain score of 5/10. MEDICAL/SURGICAL HISTORY: Gastroesophageal reflux disease. Bradycardia. Diabetes. Atrial fibril lation. Chronic back pain. Hypertension. None. ORAL CONTRAST: No oral contrast ingested. RADIATION DOSE: 12.64 CTDI (mGy) COMPARISON: [facility] – [place], CT ABDOMEN & PELVIS W CONTRAST, 04/30/2017. . TECHNIQUE: Multiple contiguous axial images were obtained through the abdomen and pelvis following b olus infusion of 80 ml Omnipaque 350 (iohexol) nonionic water-soluble contrast as a single exam dos e. No oral contrast ingested. Using automated exposure control and adjustment of the mA and/or kV ac cording to patient size, radiation dose was kept as low as reasonably achievable to obtain optimal di agnostic quality images. DICOM format image data is available electronically for review and comparis on. FINDINGS: LOWER LUNGS: Minimal groundglass opacities at the right lung base. LIVER: Diffusely decreased hepatic density without intrahepatic ductal dilatation. Gallbladder is un remarkable by CT. SPLEEN: Multiple splenic calcifications. PANCREAS: Stable mild prominence of the pancreatic head and central pancreatic duct similar to previ ous exams likely reflecting sequela of prior pancreatitis. KIDNEYS: Kidneys demonstrate symmetrical enhancement without radiopaque renal calculi or hydronephro sis. There are multiple bilateral renal cystic lesions that are too small to fully characterize. Debbie nant lesion in the inferior pole of the right kidney measures 2.9 cm and is simple fluid in density. ADRENAL GLANDS: Unremarkable. AORTA: Claire-aneurysmal. BOWEL/MESENTERY: The bowel loops are grossly unremarkable. Mild scattered colonic diverticulosis. Th e cecum and sigmoid colon have a normal configuration. Appendix is normal. No free fluid or drainable fluid collections. No pneumatosis or free air. ABDOMINAL WALL: Small fat-containing periumbilical hernia. RETROPERITONEUM: No evidence of adenopathy in the retrocrural, para-aortic, or deep pelvic regions. BLADDER: Contours are smooth. REPRODUCTIVE: Prominent containing coarse calcifications. BONY STRUCTURES: Degenerative spondylosis of the lower lumbar spine with probable Schmorl's nodes in the L4 superior endplate. CONCLUSION: 1. No acute CT abnormality in the abdomen or pelvis. 2. Minimal right lung base groundglass opacities, likely atelectasis. 3. Stable prominence of the pancreatic head and central pancreatic duct likely reflecting sequela of prior pancreatitis. 4. Bilateral renal cysts some of which are too small to fully characterize. 5. Additional ancillary findings include colonic diverticulosis, small fat-containing periumbilical hernia, nonspecific prostate enlargement, hepatic steatosis, and degenerative spondylosis of the lumb ar spine. Electronically signed by: Eddie Villa MD 07/30/2018 5:02 AM EDT
[2018-07-30] MEDS: Sod Chloride 0.9% Inj 1,000 ML IV.CONT SCH ×4 (06:11→22:35)
[2018-07-30] MEDS ORDERED: hydrALAZINE HCl Inj 20 MG/ML Vial IV.PUSH PRN (08:24)
[2018-07-30] MEDS ORDERED: HYDROmorphone PF Inj 2 MG/ML Vial IV.PUSH PRN (09:47)
--- NOTE | 2018-07-30 10:02 | P.HP ---
History of Present Illness Primary Care Physician: Aranza Hannah MD Chief Complaint: Abdominal pain History of Present Illness: 73-year-old male with known history of hypertension, atrial fibrillation, diabetes, gastric reflux, chronic back pain who presented to the hospital for acute onset abdominal pain, nausea vomiting. Patient states that approximately 6:30 in the afternoon he ate [employer] meal and approximately 30 minutes after that he got sudden onset of abdominal pain 10/10 on a pain scale with subsequent nausea and vomiting. Patient states that the vomiting got significantly worse so he came to emergency department for evaluation. Patient had workup done and found to have acute pancreatitis. Patient indicates that his nausea and vomiting have resolved since being in the hospital. His pain has minimally improved. - Diagnosis (1) Pancreatitis Inpatient Certification: I certify that the inpatient services were ordered in accordance with Medicare regulations governing the order. This includes certification that hospital inpatient services are reasonable and necessary and in the case of services not specified as inpatient-only under 42 CFR 419.22(n), that they are appropriately provided as inpatient services in accordance to with the 2-midnight benchmark under 43 CFR 412.3(e) Estimated Total Length of Stay (Days): 2 Plans for Post Hospital Care: Home Review of Systems All other systems reviewed negative except as stated in HPI Gastrointestinal: Reports abdominal pain, Reports nausea, Reports vomiting PMFSH - History History Provided By: Patient - Medical History Medical History: Medical History (Last Updated 07/30/18 @ 09:56 by MAYANK Ortega) Bradycardia Chronic obstructive pulmonary disease Diabetes Enlarged prostate GERD (gastroesophageal reflux disease) HTN (hypertension) History of TIA (transient ischemic attack) History of atrial fibrillation History of chronic back pain History of myocardial infarction Hyperlipidemia - Surgical History Surgical History: Surgical History (Last Updated 07/30/18 @ 09:56 by MAYANK Ortega) History of left knee surgery - Family History Family History: Family History (Last Updated 07/30/18 @ 09:57 by MAYANK Ortega) Father History of diabetes mellitus Mother History of diabetes mellitus - Tobacco History Second Hand Smoke Exposure: No Tobacco Use In Past 30 Days: No Smoking Status: Never smoker Tobacco Type: Cigarettes - Alcohol History How Often Do You Have a Drink Containing Alcohol: Never - Substance Use History Substance History: No History of Abuse - Travel History Recent Travel in the [place] Within the Last 8 Weeks: No Recent Travel Out of the Country Within the Last 8 Weeks: No - Immunization History Tetanus Immunization: >5 Years Hx Influenza Vaccine This Season: No Medications and Allergies Active Medications: Active Medications Enalaprilat (Vasotec Inj) 1.25 mg IV.PUSH Q6H PRN PRN Reason: SBP>160, DBP>90 Last Admin: 07/30/18 09:30 Dose: 1.25 mg Enalaprilat (Vasotec Inj) 2.5 mg IV.PUSH Q6H PRN PRN Reason: SBP> OR = 180, DBP> OR = 100 Heparin Sodium (Porcine) (Heparin Inj) 5,000 units SQ Q8H [facility] Last Admin: 07/30/18 04:05 Dose: 5,000 units Hydromorphone HCl (Dilaudid Pf Inj) 1 mg IV.PUSH Q4H PRN PRN Reason: PAIN SCALE 1 TO 10 Sodium Chloride (Ns Inj) 1,000 mls @ 125 mls/hr IV.CONT .Q8H [facility] Last Admin: 07/30/18 06:49 Dose: 125 mls/hr Ondansetron HCl (Zofran Inj) 4 mg IV.PUSH Q6H PRN PRN Reason: NAUSEA OR VOMITING Sodium Chloride (Ns Flush) 2 ml IV.FLUSH PRN PRN PRN Reason: FLUSH AFTER USING IV ACCESS Last Admin: 07/29/18 23:50 Dose: 2 ml Allergies Allergy/AdvReac Type Severity Reaction Status Date / Time meloxicam Allergy Severe Wheezing Verified 07/29/18 23:45 pravastatin Allergy Severe Anaphylaxis Verified 07/29/18 23:45 sitagliptin Allergy Severe Shortness Verified 07/29/18 23:45 of Breath canagliflozin [From Invokana] Allergy Itching Verified 07/29/18 23:48 Home Medications Medication Instructions Recorded Confirmed Type aspirin 81 mg PO DAILY 07/07/18 07/30/18 History atorvastatin [Lipitor] 20 mg PO DAILY 07/07/18 07/30/18 History diltiazem HCl 120 mg PO DAILY 07/07/18 07/30/18 History hydrocodone-acetaminophen 1 tab PO Q4-6H PRN 07/07/18 07/30/18 History omeprazole 20 mg PO DAILY 07/07/18 07/30/18 History glimepiride 2 mg PO QAM 07/30/18 07/30/18 History losartan 50 mg PO DAILY 07/30/18 07/30/18 History Exam Vital signs: Vital Signs 07/29/18 22:55 07/29/18 22:56 07/29/18 23:51 Temperature 98.5 F 98.5 F Pulse Rate 54 L 54 L 54 L Respiratory Rate 18 18 20 Blood Pressure 225/95 H 207/96 H 172/86 H Pulse Oximetry 96 96 94 L 07/30/18 00:46 07/30/18 01:01 07/30/18 02:00 Temperature Pulse Rate 54 L 54 L 54 L Respiratory Rate 18 Blood Pressure 183/82 H 183/82 H 173/96 H Pulse Oximetry 07/30/18 03:15 07/30/18 04:00 07/30/18 05:10 Temperature 98.2 F 98.2 F Pulse Rate 52 L 55 L 54 L Respiratory Rate 20 16 16 Blood Pressure 168/74 H 183/81 H 205/86 H Pulse Oximetry 100 99 07/30/18 05:19 07/30/18 05:22 07/30/18 06:08 Temperature 98.1 F Pulse Rate 51 L 52 L 50 L Respiratory Rate 20 22 Blood Pressure 168/74 H 183/81 H Pulse Oximetry Intake & Output 07/29/18 07/30/18 07/30/18 18:59 06:59 18:59 Intake Total 1000 / 1000 Output Total 1400 / 1400 Balance -400 / -400 Weight 86.3 kg Intake: IV 1000 / 1000 NS Inj 1,000 ML @ 125 mls/hr IV 1000 / 1000 .CONT .Q8H [facility] Rx#:[id number] Output: Urine 1400 / 1400 Other: # Voids 1 Weight On Admission 86.3 kg Narrative: GENERAL: Well-developed, well-nourished, in no acute distress. alert and orientated HEENT: Head is normocephalic without any lesions or masses noted. Facial features are symmetric. Eyes: Pupils equal round reactive to light. Extraocular muscles are intact. Conjunctivae were clear. Oropharyngeal: Pharynx without any erythema edema. Tongue is midline without deviation. Buccal mucosa is moist without any masses or lesions NECK: Supple without any masses. Trachea midline no deviation. No JVD, no bruits are appreciated CARDIAC: Regular rhythm, regular rate. S1/S2 are heard. 2/6 ejection murmur in mitral area. no gallops or rubs. LUNGS: Clear to auscultation bilaterally. No wheeze, rhonchi or rales. No use of accessory muscles on inspiration or expiration. ABDOMEN: Soft, epigastric abdominal pain. Nondistended. Bowel sounds heard in all 4 quadrants. No organomegaly or masses. Negative rebound, negative guarding EXTREMITIES: No edema, pulses are equal bilaterally. No cyanosis or clubbing NEUROLOGY: Mood and affect appear appropriate. Cranial nerves II through XII grossly intact. Muscle strength 5/5 in upper and lower extremities bilaterally. Deep tendon reflexes are 2+ in upper and lower extremities bilaterally. Results - Labs CBC & Chem 7: 07/30/18 00:30 07/31/18 07:20 Labs: Laboratory Results - last 24 hr 07/30/18 07/30/18 07/30/18 00:30 00:30 00:30 CBC w Diff Auto diff final WBC 7.4 RBC 4.89 Hgb 13.9 Hct 42.3 MCV 86.3 MCH 28.4 MCHC 32.9 RDW 13.5 Plt Count 216 D MPV 8.9 Neut % (Auto) 79.4 H Lymph % (Auto) 11.1 [place] % (Auto) 9.0 H Eos % (Auto) 0.4 Baso % (Auto) 0.1 Neut # (Auto) 5.9 Lymph # (Auto) 0.8 L [place] # (Auto) 0.7 Eos # (Auto) 0.0 Baso # (Auto) 0.0 WBC Differential . Differential Comment . PT 11.5 INR 1.1 APTT 29.7 Sodium 137 Potassium 4.3 Chloride 102 Carbon Dioxide 28.1 Anion Gap 7 BUN 21 H Creatinine 1.40 H Estimated GFR 60 L POC Glucose Random Glucose 153 H Lactic Acid Calcium 8.3 L Total Bilirubin 0.5 AST 20 ALT 27 Alkaline Phosphatase 107 Total Creatine Kinase 75 Troponin I Less than 0.02 L Total Protein 7.5 Albumin 3.7 Lipase 90830 H Urine Color Urine Clarity Urine pH Ur Specific [place] Urine Protein Urine Glucose (UA) Urine Ketones Urine Occult Blood Urine Nitrate Urine Bilirubin Urine Urobilinogen Ur Leukocyte Esterase Urine RBC Ur Squamous Epith Cells Micro UA Comment Ur Microscopic Review Urine Culture Comments Blood Type Antibody Screen 07/30/18 07/30/18 07/30/18 00:30 00:35 00:56 CBC w Diff WBC RBC Hgb Hct MCV MCH MCHC RDW Plt Count MPV Neut % (Auto) Lymph % (Auto) [place] % (Auto) Eos % (Auto) Baso % (Auto) Neut # (Auto) Lymph # (Auto) [place] # (Auto) Eos # (Auto) Baso # (Auto) WBC Differential Differential Comment PT INR APTT Sodium Potassium Chloride Carbon Dioxide Anion Gap BUN Creatinine Estimated GFR POC Glucose 159 H Random Glucose Lactic Acid 1.4 Calcium Total Bilirubin AST ALT Alkaline Phosphatase Total Creatine Kinase Troponin I Total Protein Albumin Lipase Urine Color Urine Clarity Urine pH Ur Specific [place] Urine Protein Urine Glucose (UA) Urine Ketones Urine Occult Blood Urine Nitrate Urine Bilirubin Urine Urobilinogen Ur Leukocyte Esterase Urine RBC Ur Squamous Epith Cells Micro UA Comment Ur Microscopic Review Urine Culture Comments Blood Type O Positive Antibody Screen Negative 07/30/18 04:30 CBC w Diff WBC RBC Hgb Hct MCV MCH MCHC RDW Plt Count MPV Neut % (Auto) Lymph % (Auto) [place] % (Auto) Eos % (Auto) Baso % (Auto) Neut # (Auto) Lymph # (Auto) [place] # (Auto) Eos # (Auto) Baso # (Auto) WBC Differential Differential Comment PT INR APTT Sodium Potassium Chloride Carbon Dioxide Anion Gap BUN Creatinine Estimated GFR POC Glucose Random Glucose Lactic Acid Calcium Total Bilirubin AST ALT Alkaline Phosphatase Total Creatine Kinase Troponin I Total Protein Albumin Lipase Urine Color Yellow Urine Clarity Clear Urine pH 6.0 Ur Specific [place] 1.020 Urine Protein Trace Urine Glucose (UA) Negative Urine Ketones Negative Urine Occult Blood Trace Urine Nitrate Negative Urine Bilirubin Negative Urine Urobilinogen 0.2 Ur Leukocyte Esterase Negative Urine RBC 0-3 Ur Squamous Epith Cells 0-5 Micro UA Comment Culture not ind Ur Microscopic Review Microscopic reviewed Urine Culture Comments Culture not ind Blood Type Antibody Screen - Imaging Impressions Chest X-Ray 07/29/18 23:22 CONCLUSION: 1. No significant interval change or acute abnormality. 2. Minimal bibasilar airspace disease, presumably atelectasis. Abdomen/Pelvis CT 07/30/18 02:40 CONCLUSION: 1. No acute CT abnormality in the abdomen or pelvis. 2. Minimal right lung base groundglass opacities, likely atelectasis. 3. Stable prominence of the pancreatic head and central pancreatic duct likely reflecting sequela of prior pancreatitis. 4. Bilateral renal cysts some of which are too small to fully characterize. 5. Additional ancillary findings include colonic diverticulosis, small fat- containing periumbilical hernia, nonspecific prostate enlargement, hepatic steatosis, and degenerative spondylosis of the lumbar spine. Caprini VTE Risk Assessment Caprini VTE Risk Assessment: No/Low Risk (score <= 1) Caprini Risk Assessment Model: Point Value = 1 Point Value = 2 Point Value = 3 Point Value = 5 Age 41-60 Minor surgery BMI > 25 kg/m2 Swollen legs Varicose veins or History of unexplained or recurrent spontaneous Oral contraceptives or hormone replacement Sepsis (< 1 month) Serious lung disease, including pneumonia (< 1 month) Abnormal pulmonary function Acute myocardial infarction Congestive heart failure (< 1 month) History of inflammatory bowel disease Medical patient at bed rest Age 61-74 Arthroscopic surgery Major open surgery (> 45 min) Laparoscopic surgery (> 45 min) Malignancy Confined to bed (> 72 hours) Immobilizing plaster cast Central venous access Age >= 75 History of VTE Family history of VTE Factor V Leiden Prothrombin [id number] Lupus anticoagulant Anticardiolipin antibodies Elevated serum homocysteine Heparin-induced thrombocytopenia Other congenital or acquired thrombophilia Stroke (< 1 month) Elective arthroplasty Hip, pelvis, or leg fracture Acute spinal cord injury (< 1 month) Prophylaxis Regimen: Total Risk Factor Score Risk Level Prophylaxis Regimen 0-1 Low Early ambulation 2 Moderate Order ONE of the following: *Sequential Compression Device (SCD) *Heparin 5000 units SQ BID 3-4 Higher Order ONE of the following medications: *Heparin 5000 units SQ TID *Enoxaparin/Lovenox 40 mg SQ daily (WT < 150 kg, CrCl > 30 mL/min) *Enoxaparin/Lovenox 30 mg SQ daily (WT < 150 kg, CrCl > 10-29 mL/min) *Enoxaparin/Lovenox 30 mg SQ BID (WT < 150 kg, CrCl > 30 mL/min) AND/OR *Sequential Compression Device (SCD) 5 or more Highest Order ONE of the following medications: *Heparin 5000 units SQ TID (Preferred with Epidurals) *Enoxaparin/Lovenox 40 mg SQ daily (WT < 150 kg, CrCl > 30 mL/min) *Enoxaparin/Lovenox 30 mg SQ daily (WT < 150 kg, CrCl > 10-29 mL/min) *Enoxaparin/Lovenox 30 mg SQ BID (WT < 150 kg, CrCl > 30 mL/min) AND *Sequential Compression Device (SCD) Assessment and Plan - Assessment (1) Pancreatitis Code(s): K85.90 - Acute pancreatitis without necrosis or infection, unspecified Status: Acute - Plan Acute pancreatitis -CT scan does indicate stable prominence of the pancreatic head and central pancreatic duct likely reflecting sequela of prior pancreatitis -Continue supportive care: N.p.o., IV fluids, pain control -Continue to trend lipase level and monitor clinically -Check triglyceride, previous admission for pancreatitis patient had normal triglyceride level Acute kidney injury -Likely secondary to dehydration, pancreatitis -Continue IV fluids -Monitor renal function hypertension -Vasotec as needed -May need to start Cardene drip if blood pressure continues to be uncontrolled -Unable to use Lopressor, labetalol IV secondary to bradycardia Diabetes -Accu-Cheks with sliding scale insulin DVT prevention -Sequential compression devices
[2018-07-30] MEDS ORDERED: Dextrose 50% in Water 50 ML Vial IV.PUSH PRN (18:45)
[2018-07-30] MEDS: Insulin NovoLOG Aspart Correctional Sugar Inj SQ SCH (20:11)
[2018-07-31] MEDS: Heparin - SQ 10,000 UNITS/ML Vial SQ SCH ×2 (04:00→13:04)
[2018-07-31] MEDS: Sod Chloride 0.9% Inj 1,000 ML IV.CONT SCH (04:26)
--- NOTE | 2018-07-31 07:59 | P.PN ---
Subjective Interval history: States that he is doing much better. Only has a mild soreness in the left lower quadrant. No more discomfort in the epigastric region. Patient with mildly elevated blood pressure at this time. Will resume medications once he is tolerating p.o. Patient remains afebrile. No bowel movement today. Physical Exam Vital signs: Vital Signs 07/30/18 08:00 07/30/18 08:24 07/30/18 08:25 Temperature Pulse Rate 56 L 54 L Respiratory Rate 17 Blood Pressure 195/88 H Pulse Oximetry 07/30/18 09:00 07/30/18 09:28 07/30/18 09:42 Temperature Pulse Rate 64 62 58 L Respiratory Rate 16 18 Blood Pressure 224/93 H 216/83 H Pulse Oximetry 96 07/30/18 09:46 07/30/18 10:12 07/30/18 11:00 Temperature Pulse Rate 56 L 52 L 54 L Respiratory Rate 15 13 19 Blood Pressure 203/81 H 169/79 H Pulse Oximetry 97 96 97 07/30/18 12:00 07/30/18 12:12 07/30/18 12:35 Temperature Pulse Rate 48 L 50 L 52 L Respiratory Rate 18 13 12 Blood Pressure 193/86 H 176/80 H Pulse Oximetry 96 97 97 07/30/18 16:00 07/30/18 16:12 07/30/18 17:57 Temperature Pulse Rate 46 L 76 Respiratory Rate 13 22 Blood Pressure 183/80 H 155/84 H Pulse Oximetry 07/30/18 20:00 07/31/18 00:00 07/31/18 04:00 Temperature 96.5 F L 98 F 97.5 F L Pulse Rate 51 L 52 L 54 L Respiratory Rate 20 20 20 Blood Pressure 177/81 H 167/77 H 146/65 H Pulse Oximetry 97 97 97 Intake & Output 07/30/18 07/31/18 07/31/18 18:59 06:59 18:59 Intake Total 1430 / 1430 1000 / 1000 Output Total 750 / 750 600 / 600 Balance 680 / 680 1000 / 1000 -600 / -600 Weight 86.5 kg Intake: IV 1430 / 1430 1000 / 1000 NS Inj 1,000 ML @ 125 mls/hr IV 1430 / 1430 1000 / 1000 .CONT .Q8H [facility] Rx#:[id number] Oral 0 / 0 0 / 0 Output: Urine 750 / 750 600 / 600 Other: # Voids 2 2 Narrative: GENERAL: Well-developed, well-nourished, in no acute distress. alert and orientated HEENT: Head is normocephalic without any lesions or masses noted. Facial features are symmetric. Eyes: Extraocular muscles are intact. Conjunctivae were clear. NECK: Supple without any masses. Trachea midline no deviation. No JVD, CARDIAC: Regular rhythm, regular rate. S1/S2 are heard. 2/6 ejection murmur in the mitral area. No gallops or rubs. LUNGS: Clear to auscultation bilaterally. No wheeze, rhonchi or rales. No use of accessory muscles on inspiration or expiration. ABDOMEN: Soft, nontender. Nondistended. Bowel sounds heard in all 4 quadrants. No organomegaly or masses. Negative rebound, negative guarding EXTREMITIES: No edema, pulses are equal bilaterally. No cyanosis or clubbing NEUROLOGY: Mood and affect appear appropriate. Cranial nerves II through XII grossly intact. Moving all extremities, speech is clear Results - Labs CBC & Chem 7: 07/30/18 00:30 07/31/18 07:20 Laboratory Results - last 24 hr 07/30/18 07/30/18 07/30/18 00:30 18:31 20:09 POC Glucose 86 87 Triglycerides 68 07/31/18 07:26 POC Glucose 72 Triglycerides Assessment and Plan - Assessment (1) Pancreatitis Code(s): K85.90 - Acute pancreatitis without necrosis or infection, unspecified Status: Acute - Plan Acute pancreatitis -CT scan does indicate stable prominence of the pancreatic head and central pancreatic duct likely reflecting sequela of prior pancreatitis -Continue supportive care: N.p.o., IV fluids, pain control -Patient had a miraculous improvement of his lipase level from [id number] -->249 -Patient is tolerating advanced diet and asymptomatic at this time -Triglyceride level was normal Acute kidney injury, resolved -Likely secondary to dehydration, pancreatitis -Continue IV fluid -Continue monitor renal function Hypertension -Vasotec as needed -Unable to use Lopressor, labetalol IV secondary to bradycardia Diabetes -Accu-Cheks with sliding scale insulin DVT prevention -Sequential compression devices Discharge Planning: Discharge home in stable condition Activity: Ad juan antonio. Diet: Diabetic diet Medication per medication reconciliation Follow-up with primary medical doctor in 1 week
[2018-07-31 08:18] LABS: Potassium 3.7 meq/L (3.5-5.1)
[2018-07-31 08:24] LABS: Carbon Dioxide 25.7 meq/L (21.0-32.0)
[2018-07-31] MEDS: Insulin NovoLOG Aspart Correctional Sugar Inj SQ SCH ×2 (09:11→12:10)
--- NOTE | 2018-07-31 22:36 | ECG ---
Date Performed: 07/29/2018 Time Performed: 23:45:15 PTAGE: 73 years EKG: SINUS BRADYCARDIA INFERIOR MYOCARDIAL INFARCTION ABNORMAL ECG PREVIOUS TRACING : 03/03/2018 04.35 DOCTOR: Paula Roche Interpretating Date/Time 07/31/2018 22:27:56
== END 2018-07-31 17:30 | disposition home or self-care (01) ==
LOC: PHED 22:51 → PHEDA 07-30 03:28 → PHICU 07-30 05:05 → PH3 07-30 18:43
PROVIDERS: ADMIT Family Medicine; ATTEND Family Medicine